=== PATIENT | female | born 1960 | race Two or more races ===

== ENCOUNTER 2021-10-28 13:30 | Outpatient (REF) | payer OTHER, SELFPAY | END 2021-10-28 13:31 | disposition home or self-care (01) | LOC: HO.MRI 13:30 | PROVIDERS: Visit Provider Psychiatry & Neurology Neurology | DX: Z13.89 Encounter for screening for other disorder (principal) ==

== ENCOUNTER 2023-05-31 13:45 | Outpatient (AMB) | payer OTHER, SELFPAY ==
--- NOTE | 2023-05-31 13:47 | MHC.OFFVIS ---
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 She c/o numbness, burning sensation and issues with gait. She also c/o numbness of leonardo hands. All her sx are intermittent, worse at night. [facility] Director Required: No Allergies No Known Allergies Allergy (Unverified 05/31/23 13:54) Medication List - Last Reconciled 05/31/23 by Freida Flores MD albuterol sulfate 2.5 mg inhalation Q4-6H PRN albuterol sulfate 90 mcg/actuation (ProAir HFA) 1 puff inhalation QID aspirin 81 mg PO DAILY bupropion HCl 300 mg PO QAM bupropion HCl (Wellbutrin XL) 150 mg PO QAM cyanocobalamin (vitamin B-12) 1,000 mcg PO DAILY epinephrine IM fluticasone propionate 50 mcg/actuation (Flonase Allergy Relief) 1 spray intranasal DAILY fluticasone propionate 220 mcg/actuation (Flovent HFA) 1 puff inhalation BID ketotifen fumarate 0.025%(0.035%) 1 drp ophthalmic (eye) BID meclizine 12.5 mg PO TID PRN omeprazole 20 mg PO DAILY trazodone 50 mg PO DAILY valacyclovir (Valtrex) 500 mg PO DAILY venlafaxine ER 37.5 mg PO BEDTIME HPI HPI Comments History of Present Illness Details 62y/o female comes for evaluation of numbness and tingling in bilateral lower extremities and hands. It started about 3-4 years ago and has worsened since then.she denies pain but feels like her plantar surfaces are warm. The discomfort is worse when she is lying down or at night.she has trouble sleeping and wakes up in the middle of the night with foot pain she has back and neck pain . she also has shooting pain from her back down her legs . No difficulty holding her urine. she feels off balance and has had falls. she has arthrtis in her knees which affect her walking. she has a diagnosis of sleep apnes but stopped using CPAP. she was seen by DR. Hodgson - diagnosed with neuropathy. she denies weakness or tremors [facility] Medical History (Updated 05/31/23 @ 14:31 by Freida Flores MD) Numbness and tingling in both hands Numbness and tingling of both legs Depression Hx of migraines Asthma Anxiety Obesity Herpes zoster Vitamin D deficiency Obstructive sleep apnea hypopnea, severe Hyperlipidemia Multiple thyroid nodules Surgical History Hx of cholecystectomy H/O lithotripsy H/O unilateral oophorectomy H/O tubal ligation Social History Household Members: Family Housing: House Alcohol intake: never Patient Tobacco Use Status: Former Tobacco user Use of substances other than those prescribed or required for medical reasons: No Physical Exam Vital Signs: Last Vital Signs Pulse 96 05/31/23 13:49 Resp 17 05/31/23 13:49 BP 146/82 H 05/31/23 13:49 Pulse Ox 98 05/31/23 13:49 Oxygen Delivery Method Room Air 05/31/23 13:49 BMI result Body Mass Index 47.7 Const General: cooperative, comfortable and no acute distress Nutritional Appearance: obese morbidly obese Orientation/consciousness: patient oriented x3 Eyes Pupils: Equal, round and reactive pupils present Neuro Other: Mild decreased PP and light touch in distal LE General: patient oriented x3, gait normal, tone normal, moves all extremities and no focal motor deficits Cranial nerves: Yes Facial sensation intact/muscles of mastication intact, Yes Equal, round and reactive pupils present, Yes Bilaterally intact EOM present, Yes Nystagmus not present, Yes Normal facial strength present, Yes Midline tongue present and Yes Symmetric palate elevation present Cognition (Neuro): normal cognition Gait exam (Neuro): Antalgic gait present Motor exam (neuro): 5/5 motor strength present throughout Deep tendon reflexes (DTR's): Right triceps reflex intensity grade: 1+, Left triceps reflex intensity grade: 1+, Rt Biceps (C5, C6): 1+, Left biceps reflex intensity grade: 1+, Right brachioradialis reflex intensity grade: 0, Left brachioradialis reflex intensity grade: 0 and Right patellar reflex intensity grade: 0 Assessment & Plan Assessment & Plan (1) Numbness and tingling of both legs: Code(s): R20.0 - Anesthesia of skin; R20.2 - Paresthesia of skin (2) Numbness and tingling in both hands: Code(s): R20.0 - Anesthesia of skin; R20.2 - Paresthesia of skin Plan Lab reports form PCP I will schedule her for EMG NCS She has a component of restless legs syndrome and i will trial her on gabapentin 300mg 1-2 tabs qhs Orders: Orders NE electromyogram (EMG) Today R20.0 - Anesthesia of skin, R20.2 - Paresthesia of skin NE nerve conduction velocity Today R20.0 - Anesthesia of skin, R20.2 - Paresthesia of skin Medications: New gabapentin 1-2 capsules orally bedtime; 60 caps 6RF Coding Level of Care Code New Pt Level 4 (06801) Diagnoses Numbness and tingling of both legs R20.0; R20.2 Numbness and tingling in both hands R20.0; R20.2
[2023-05-31 13:49] VITALS: BP 146/82; PULSE 96; RESP 17; O2SAT 98; BMI 47.7
== END 2023-05-31 14:38 | disposition home or self-care (01) ==
PROVIDERS: PCP Internal Medicine; Visit Provider Psychiatry & Neurology Neurology
DX: R20.0 Anesthesia of skin (principal); R20.2 Paresthesia of skin
CPT/HCPCS: 99204

== ENCOUNTER → 2023-05-31 13:45 | Outpatient (BNVA) | payer OTHER, SELFPAY | PROVIDERS: PCP Internal Medicine; Visit Provider Psychiatry & Neurology Neurology | DX: R20.0 Anesthesia of skin (principal); R20.2 Paresthesia of skin | CPT/HCPCS: 99202 ==

== ENCOUNTER 2023-07-18 12:44 | Outpatient (REF) | payer OTHER, SELFPAY ==
--- NOTE | 2023-07-18 12:48 | EMG_ITS ---
Chief complaint: Bilateral hands and feet numbness at least 4 years. Neck pain. Back pain. Nondiabetic. Family history-daughter and father have similar symptoms. Previous EMG by Dr. Hodgson 2 years ago allegedly showed neuropathy (EMG report was not available for my review). Reason for referral: Evaluate for neuropathy Referred by: Dr. Flores Procedure done: Bilateral upper and lower extremities NCS/EMG Precautions and/or limitations: None The limb temperature was monitored continuously and remained between 32-36 degrees C during the performance of the NCS. Nerve Conduction Studies Anti Sensory Summary Table ?Stim Site NR Onset (ms) Norm Onset (ms) Peak (ms) Norm Peak (ms) O-P Amp (?V) Norm O-P Amp Site1 Site2 Delta-0 (ms) Dist (cm) Riki (m/s) Norm Riki (m/s) Left Median Anti Sensory (2nd Digit) Wrist ? 2.4 3.6 <3.6 10.5 >10 Wrist 2nd Digit 2.4 14.0 58 Right Median Anti Sensory (2nd Digit) Wrist ? 3.0 3.9 <3.6 6.1 >10 Wrist 2nd Digit 3.0 14.0 47 Left Radial Anti Sensory (Thumb) Forearm NR <3.1 Forearm Thumb 0.0 Right Radial Anti Sensory (Thumb) Forearm ? 1.5 2.1 <3.1 1.9 Forearm Thumb 1.5 0.0 Left Sural Anti Sensory (Lat Mall) Calf NR <4.0 >5.0 Calf Lat Mall 14.0 Right Sural Anti Sensory (Lat Mall) Calf NR <4.0 >5.0 Calf Lat Mall 14.0 Left Ulnar Anti Sensory (5th Digit) Wrist NR <3.7 >15.0 Wrist 5th Digit 14.0 Right Ulnar Anti Sensory (5th Digit) Wrist ? 2.2 2.9 <3.7 2.7 >15.0 Wrist 5th Digit 2.2 14.0 64 Motor Summary Table ?Stim Site NR Onset (ms) Norm Onset (ms) O-P Amp (mV) Norm O-P Amp iAmp (mV) Amp (1st) (%) Site1 Site2 Delta-0 (ms) Dist (cm) Riki (m/s) Norm Riki (m/s) Left Median Motor (Abd Poll Brev) Wrist ? 3.3 <3.9 5.9 >4.5 7.0 100.0 Elbow Wrist 3.4 21.0 62 >45 Elbow ? 6.7 5.8 6.7 98.3 Right Median Motor (Abd Poll Brev) Wrist ? 3.8 <3.9 10.5 >4.5 12.2 100.0 Elbow Wrist 3.9 22.0 56 >45 Elbow ? 7.7 9.5 11.0 90.5 Right Peroneal Motor (Ext Dig Brev) Ankle ? 3.8 <4.0 6.7 >2.5 7.5 100.0 Ankle Ext Dig Brev 3.8 0.0 B Fib ? 10.5 5.6 6.3 83.6 B Fib Ankle 6.7 31.0 46 >40 Poplt ? 11.0 5.5 6.1 82.1 Poplt B Fib 0.5 5.0 100 >40 Left Tibial Motor (Abd Garcia Brev) Ankle ? 3.6 <5 9.4 >2.5 13.5 100.0 Ankle Abd Garcia Brev 3.6 0.0 Knee ? 11.6 4.5 6.5 47.9 Knee Ankle 8.0 37.0 46 >40 Right Tibial Motor (Abd Garcia Brev) Ankle ? 3.4 <5 6.4 >2.5 9.3 100.0 Ankle Abd Garcia Brev 3.4 0.0 Knee ? 11.4 5.2 7.9 81.3 Knee Ankle 8.0 35.0 44 >40 Left Ulnar Motor (Abd Dig Minimi) Wrist ? 2.6 <3.0 7.7 >5 9.5 100.0 B Elbow Wrist 3.3 19.0 58 >45 B Elbow ? 5.9 6.9 8.7 89.6 A Elbow B Elbow 1.2 10.0 83 >45 A Elbow ? 7.1 6.6 8.3 85.7 Right Ulnar Motor (Abd Dig Minimi) Wrist ? 2.4 <3.0 8.9 >5 10.8 100.0 B Elbow Wrist 3.5 20.0 57 >45 B Elbow ? 5.9 8.2 10.0 92.1 A Elbow B Elbow 1.1 10.0 91 >45 A Elbow ? 7.0 6.9 8.4 77.5 EMG ?Side Muscle Nerve Root Ins Act Fibs Psw Amp Dur Poly Recrt Int Pat Comment Right 1stDorInt Ulnar C8-T1 Nml Nml Nml Nml Nml 0 Nml Complete Right FlexCarRad Median C6-7 Nml Nml Nml Nml Nml 0 Nml Complete Right Biceps Musculocut C5-6 Nml Nml Nml Nml Nml 0 Nml Complete Right Triceps Radial C6-7-8 Nml Nml Nml Nml Nml 0 Nml Complete Right Deltoid Axillary C5-6 Nml Nml Nml Nml Nml 0 Nml Complete Left 1stDorInt Ulnar C8-T1 Nml Nml Nml Nml Nml 0 Nml Complete Left FlexCarRad Median C6-7 Nml Nml Nml Nml Nml 0 Nml Complete Left Biceps Musculocut C5-6 Nml Nml Nml Nml Nml 0 Nml Complete Left Triceps Radial C6-7-8 Nml Nml Nml Nml Nml 0 Nml Complete Left Deltoid Axillary C5-6 Nml Nml Nml Nml Nml 0 Nml Complete Right AbdHallucis MedPlantar S1-2 Nml Nml Nml Nml Nml 0 Nml Complete Right AntTibialis Dp Br Peron L4-5 Nml Nml Nml Nml Nml 0 Nml Complete Right PostTibialis Tibial L5, S1 Nml Nml Nml Nml Nml 0 Nml Complete Right MedGastroc Tibial S1-2 Nml Nml Nml Nml Nml 0 Nml Complete Right VastusMed Femoral L2-4 Nml Nml Nml Nml Nml 0 Nml Complete Left AbdHallucis MedPlantar S1-2 Nml Nml Nml Nml Nml 0 Nml Complete Left AntTibialis Dp Br Peron L4-5 Nml Nml Nml Nml Nml 0 Nml Complete Left PostTibialis Tibial L5, S1 Nml Nml Nml Nml Nml 0 Nml Complete Left MedGastroc Tibial S1-2 Nml Nml Nml Nml Nml 0 Nml Complete Left VastusMed Femoral L2-4 Nml Nml Nml Nml Nml 0 Nml Complete Paraspinal EMG ?Side Muscle Nerve Root Ins Act Fibs Psw Comment Right Cervical Upper Rami Nml Nml Nml Right Cervical Mid Rami Nml Nml Nml Right Cervical Lower Rami Nml Nml Nml Left Cervical Upper Rami Nml Nml Nml Left Cervical Mid Rami Nml Nml Nml Left Cervical Lower Rami Nml Nml Nml Right Lumbar Upper Rami Nml Nml Nml Right Lumbar Mid Rami Nml Nml Nml Right Lumbar Lower Rami Nml Nml Nml Left Lumbar Upper Rami Nml Nml Nml Left Lumbar Mid Rami Nml Nml Nml Left Lumbar Lower Rami Nml Nml Nml FINDINGS: All motor nerves tested showed normal distal latency, normal amplitude and normal conduction velocity. No conduction block seen. Bilateral sural nerves showed absent response. Right median sensory nerve showed prolonged peak latency and small amplitude. Right ulnar sensory nerve showed small amplitude. Right radial sensory nerve showed small amplitude. Left ulnar sensory nerve showed absent response. Left radial sensory nerve showed absent response. Concentric needle EMG was performed in selected muscles of the upper and lower extremities, cervical paraspinals and lumbar paraspinals. Study did not reveal signs of electric abnormalities as shown in the table below. IMPRESSION: 1. This is an abnormal study. 2. 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 3. There is no electrodiagnostic evidence for median neuropathy, ulnar neuropathy, brachial plexopathy, cervical radiculopathy, peroneal neuropathy, tibial neuropathy, lumbosacral plexopathy, or lumbar radiculopathy. Thank you for your kind referral. Gela Frias MD, PRESLEY Board Certified, [place] Board [employer] Physical Medicine and Rehabilitation (ABPMR) Board Certified, [place] Board of Electrodiagnostic Medicine (ABEM) CODIN 11464 x 4 MTDD
== END 2023-07-18 12:45 | disposition home or self-care (01) ==
LOC: HO.NEURO 12:44
PROVIDERS: PCP Internal Medicine; Visit Provider Psychiatry & Neurology Neurology
DX: R20.0 Anesthesia of skin (principal); R20.2 Paresthesia of skin
CPT/HCPCS: 95886; 95913

== ENCOUNTER → 2023-07-18 12:48 | Outpatient (BNV) | payer OTHER, SELFPAY | PROVIDERS: PCP Internal Medicine; Visit Provider Physical Medicine & Rehabilitation | DX: R20.0 Anesthesia of skin (principal); R20.2 Paresthesia of skin | CPT/HCPCS: 95886; 95913 ==

== ENCOUNTER 2024-03-20 09:51 | Outpatient (AMB) | payer OTHER, SELFPAY ==
--- NOTE | 2024-03-20 09:54 | A.OFFVIS_ITS ---
Vital Signs 03/20/24 09:55 Height 5 ft 4 in Weight 244 lb BMI 41.9 BP 136/78 Blood Pressure Location Rt brachial Position Sitting Pulse 74 Pulse Source Pulse Oximeter Pulse Oximetry (%) 97 Oxygen Delivery Method Room Air Intake Visit Reasons: Follow up Intake Note: Patient presents for follow up Allergies No Known Allergies Allergy (Unverified 03/20/24 09:56) Medication List - Last Reconciled 03/20/24 by Freida Flores MD albuterol sulfate 2.5 mg inhalation Q4-6H PRN albuterol sulfate 90 mcg/actuation (ProAir HFA) 1 puff inhalation QID aspirin 81 mg PO DAILY bupropion HCl XL 300 mg PO QAM bupropion HCl XL (Wellbutrin XL) 150 mg PO QAM cyanocobalamin (vitamin B-12) 1,000 mcg PO DAILY epinephrine IM fluticasone propionate 50 mcg/actuation (Flonase Allergy Relief) 1 spray intranasal DAILY fluticasone propionate 220 mcg/actuation (Flovent HFA) 1 puff inhalation BID gabapentin 1-2 capsules orally bedtime; gabapentin 600 mg PO BEDTIME ketotifen fumarate 0.025%(0.035%) 1 drp ophthalmic (eye) BID meclizine 12.5 mg PO TID PRN omeprazole 20 mg PO DAILY trazodone 50 mg PO DAILY valacyclovir (Valtrex) 500 mg PO DAILY venlafaxine ER 37.5 mg PO BEDTIME HPI Comments Details: 63y/o female comes for follow up of numbness and tingling in bilateral lower extremities and hands. Gabapentin 600mg qhs helps with her bedtime symptoms. she also reports some short term memory issues she has a diagnosis of sleep apne abut not on treatment . History form initial visit- ( 05/2023)It started about 3-4 years ago and has worsened since then.she denies pain but feels like her plantar surfaces are warm. The discomfort is worse when she is lying down or at night.she has trouble sleeping and wakes up in the middle of the night with foot pain she has back and neck pain . she also has shooting pain from her back down her legs . No difficulty holding her urine. she feels off balance and has had falls. she has arthrtis in her knees which affect her walking. she has a diagnosis of sleep apnea but stopped using CPAP. she was seen by DR. Hodgson - diagnosed with neuropathy. she denies weakness or tremors [facility] Medical History Hypersomnia Snoring Gait disorder Neuropathy Numbness and tingling in both hands Numbness and tingling of both legs Depression Hx of migraines Asthma Anxiety Obesity Herpes zoster Vitamin D deficiency Obstructive sleep apnea hypopnea, severe Hyperlipidemia Multiple thyroid nodules Surgical History Hx of cholecystectomy H/O lithotripsy H/O unilateral oophorectomy H/O tubal ligation Social History Household Members: Family Housing: House Alcohol intake: never Patient Tobacco Use Status: Former Tobacco user Physical Exam Vital Signs: Last Vital Signs Pulse 74 03/20/24 09:55 BP 136/78 03/20/24 09:55 Pulse Ox 97 03/20/24 09:55 Oxygen Delivery Method Room Air 03/20/24 09:55 BMI result Body Mass Index 41.9 Const General: cooperative, comfortable and no acute distress Nutritional Appearance: obese morbidly obese Orientation/consciousness: patient oriented x3 Eyes Pupils: Equal, round and reactive pupils present Neuro Other: Mild decreased PP and light touch in distal LE General: patient oriented x3, gait normal, tone normal, moves all extremities and no focal motor deficits Cranial nerves: Yes Facial sensation intact/muscles of mastication intact, Yes Equal, round and reactive pupils present, Yes Bilaterally intact EOM present, Yes Nystagmus not present, Yes Normal facial strength present, Yes Midline tongue present and Yes Symmetric palate elevation present Cognition (Neuro): normal cognition Gait exam (Neuro): Antalgic gait present Motor exam (neuro): 5/5 motor strength present throughout Deep tendon reflexes (DTR's): Right triceps reflex intensity grade: 1+, Left triceps reflex intensity grade: 1+, Rt Biceps (C5, C6): 1+, Left biceps reflex intensity grade: 1+, Right brachioradialis reflex intensity grade: 0, Left brachioradialis reflex intensity grade: 0 and Right patellar reflex intensity grade: 0 Assessment & Plan Assessment & Plan (1) Neuropathy: Code(s): G62.9 - Polyneuropathy, unspecified Category: Medical (2) Gait disorder: Code(s): R26.9 - Unspecified abnormalities of gait and mobility Category: Medical (3) Snoring: Code(s): R06.83 - Snoring Category: Medical (4) Hypersomnia: Code(s): G47.10 - Hypersomnia, unspecified Category: Medical Plan I will check her Vit B 12 D CBC CMP ESRHg A1C Home sleep study to reevaluate sleep apnea PT for gait and balance training Orders: Orders Complete Blood Count Auto Diff Today G62.9 - Polyneuropathy, unspecified Erythrocyte Sedimentation Rate Today G62.9 - Polyneuropathy, unspecified TSH reflex Free T4 Today G62.9 - Polyneuropathy, unspecified AMB Hemoglobin A1c Today Z13.9 - Encounter for screening, unspecified PT Evaluation and Treatment Today G62.9 - Polyneuropathy, unspecified, R26.9 - Unspecified abnormalities of gait and mobility RT home sleep study Today G47.10 - Hypersomnia, unspecified, R06.83 - Snoring Comprehensive Met. Panel Today G62.9 - Polyneuropathy, unspecified Vitamin B12 and Folate Today G62.9 - Polyneuropathy, unspecified G[place]KO Reflex Titer and Pattern Today G62.9 - Polyneuropathy, unspecified Vitamin D 25-OH (D2 and D3) Today G62.9 - Polyneuropathy, unspecified Medications: New gabapentin 600 mg PO BEDTIME 30 tabs 6RF Coding Level of Care Code Est Pt Level 4 (51591) Complex EM visit Add On G2211 Diagnoses Neuropathy G62.9 Gait disorder R26.9 Snoring R06.83 Hypersomnia G47.10
[2024-03-20 09:55] VITALS: BP 136/78; PULSE 74; O2SAT 97; BMI 41.9
== END 2024-03-20 10:15 | disposition home or self-care (01) ==
PROVIDERS: PCP Internal Medicine; Visit Provider Psychiatry & Neurology Neurology
DX: G62.9 Polyneuropathy, unspecified (principal); R26.9 Unspecified abnormalities of gait and mobility; R06.83 Snoring; G47.10 Hypersomnia, unspecified
CPT/HCPCS: 99214; G2211

== ENCOUNTER 2024-03-20 09:51 | Outpatient (REF) | payer OTHER, SELFPAY ==
[2024-03-20 17:46] LABS: MANUAL DIFF FLAG NO
[2024-03-20 17:56] LABS: Basophils Percent Auto 0.5 % (0-2); Eosinophils Absolute Auto 0.2 X10*3/uL (0.0-0.4); Eosinophils Percent Auto 2.5 % (0-4); Hematocrit 41.5 % (37.0-47.0); Hemoglobin 13.4 g/dl (12.0-16.0); Imm Gran Abs Auto 0.03 X10*3/uL (0.00-0.03); Imm Gran Pct Auto 0.4 % (0.0-0.4); Lymphocytes Absolute Auto 1.8 X10*3/uL (1.2-4.9); Lymphocytes Percent Auto 24.8 % (20-40); Mean Corpuscular HGB Conc 32.3 g/dl (31.0-35.0); Mean Corpuscular Hemoglobin 30.8 pg (27.0-33.0); Mean Corpuscular Volume 95.4 fL (80.0-98.0); Mean Platelet Volume 10.3 fL (9.4-12.3); Monocytes Absolute Auto 0.6 X10*3/uL (0.1-1.2); Monocytes Percent Auto 8.1 % (2-11); Neutrophils Absolute Auto 4.7 x10*3/uL (2.0-8.3); Neutrophils Percent Auto 63.7 % (45-73); Platelet Count 321 X10*3/uL (160-400); Red Blood Count 4.35 X10*6/uL (4.20-5.50); Red Cell Distribution Width 14.3 % (11.0-16.0); White Blood Count 7.3 X10*3/uL (4.8-10.8)
[2024-03-20 18:16] LABS: Alanine Aminotransferase 20 U/L (0-31); Albumin Level 3.8 g/dL (3.5-5.0); Alkaline Phosphatase 87 U/L (39-117); Anion Gap 8 (12-20); Aspartate Amino Transferase 25 U/L (5-31); Blood Urea Nitrogen 10 mg/dL (9-16); Calcium 8.9 mg/dL (8.4-10.2); Carbon Dioxide 23 mmol/L (22-29); Chloride 114 mmol/L (96-108); Estimated Glomerular Filt Rate > 60; Glucose Random 98 mg/dL (60-115); Potassium 4.1 mmol/L (3.3-5.1); Sodium 141 mmol/L (135-145); Total Protein 7.6 g/dL (6.5-8.0)
[2024-03-20 18:29] LABS: TSH reflex Free T4 0.29 uIU/mL (0.32-4.0)
[2024-03-20 18:41] LABS: Vitamin B12 650 pg/mL (200-900)
[2024-03-20 18:57] LABS: Erythrocyte Sedimentation Rate 22 MM/HR (0-20)
[2024-03-20 19:00] LABS: Free T4 (Free Thyroxine) 1.12 ng/dL (0.71-1.85)
[2024-03-25 11:53] LABS: Vitamin D 25-OH, D2 6 ng/mL; Vitamin D 25-OH, D3 32 ng/mL; Vitamin D 25-OH, Total 38 ng/mL (30-100)
[2024-03-25 13:39] LABS: Anti Nuclear Antibody Screen NEGATIVE (NEGATIVE)
== END 2024-03-20 09:52 | disposition home or self-care (01) ==
LOC: HO.HKASLDS 09:51
PROVIDERS: PCP Internal Medicine; Visit Provider Psychiatry & Neurology Neurology
DX: G62.9 Polyneuropathy, unspecified (principal); R26.9 Unspecified abnormalities of gait and mobility; R06.82 Tachypnea, not elsewhere classified; R06.83 Snoring; G47.10 Hypersomnia, unspecified
CPT/HCPCS: 36415; 80053; 82306; 82607; 82746; 84439; 84443; 85025; 85652; 86038; 99212

== ENCOUNTER → 2024-05-06 13:42 | Outpatient (REF) | payer OTHER, SELFPAY ==
--- OUTSIDE RECORDS SUMMARY | 2024-05-06 17:16 | XMS_ITS | Encounter Summary ---
Author Organization [facility] Address [address] [place] [address] Care Team Providers Care Retail Training Manager Name Role Phone Socorro Gale MD Primary Care Prov ider Reason for Referral * Medications - Denied Specialty Diagnoses / Procedures Referred By Renetta t Referred To Contact Diagnoses Class 3 severe obesity due to excess calories with body mass index (BMI) of 40.0 to 44.9 in adult, unspecified whether serious comorbidity present (CMS/HCC) Srinath Acharya MD [address] [address] Phone: tel: fax: Referral ID Status Reason Start Date Expiration Date Visits Re quested Visits Authorized [id number] Denied 1 1 Reason for Visit * Reason Comments Follow-up 3 month follow up Encounter Details Date Type Department Care Team (Late st Contact Info) Description 04/08/2024 1:15 PM EST Office Visit Bariatric Surgery - [place] [address] [phone] Srinath Acharya MD [address] [address] Class 3 severe obesity due to excess calories with body mass index (BMI) of 40.0 to 44.9 in adult, unspecified whether serious comorbidity present (CMS/HCC) (Primary Dx) Social History Tobacco Use Types Packs/Day Years Used Date Smoking Tobacco: Never Smokeless Tobacco: Never Alcohol Use Standard Drinks/Week Comments No 0 (1 standard drink = 0.6 oz pur e alcohol) Comments Unknown Sex and Gender Information Value Date Recorded Sex Assigned at Not on file Legal Sex Female 3:30 AM EST Gender Identity Not on file Sexual Orientation Not on file documented as of this encounter Last Filed Vital Signs Vital Sign Reading Time Taken Comments Blood Pressure 138/75 04/08/2024 1:20 PM EST Pulse 78 04/08/2024 1:20 PM EST Temperature 36.8 ??C (98.2 ??F) 04/08/2024 1:20 PM ES T Respiratory Rate - - Oxygen Saturation - - Inhaled Oxygen Concentration - - Weight 110 kg (243 lb) 04/08/2024 1:20 PM EST Height 162.6 cm (5' 4 ) 04/08/2024 1:20 PM EST Body Mass Index 41.71 04/08/2024 1:20 PM EST documented in this encounter Ordered Prescriptions Prescription Sig Dispense Quantity Refills Last Filled Start Date End Date tirzepatide, weight loss, (Zepbound) 2.5 mg/0.5 mL injectionIndicatio ns:Class 3 severe obesity due to excess calories with body mass index (BMI) of 40.0 to 44.9 in adult, unspecified whether serious comorbidity present (CMS/HCC) Inject 0.5 mL (2.5 mg total) under the skin every 7 (seven) days for 4 doses. 2 mL 04/08/2024 04/30/2024 documented in this encounter Progress Notes * Srinath Acharya MD - 04/08/2024 1:15 PM EST Ms. Prisca Chino is a 63 y.o. year old female who presents for surgical follow up regarding obesity. HPI: Ms. Prisca Chino did not used tirzepatide for a month. Issues with insurance company. Had lost 10 lbs. BMI is 41.71 ROS: GENERAL: No malaise, significant unintentional weight loss, fever, chills or night sweats. HEENT: No changes in hearing or vision, no nose bleeds or other nasal problems. NECK: No lumps, goiter, pain or significant neck swelling RESPIRATORY: No cough, wheezing or shortness of breath CARDIOVASCULAR: No chest pain, leg swelling or palpitations. GI: No abdominal discomfort, nausea, vomiting, or change in bowel habits. : No dysuria, frequency or incontinence. SKIN: No lesions, rash or itching. HEMATOLOGY: No prolonged bleeding, easy bruisability. LYMPHOLOGY No swollen nodes. MUSCULOSKELETAL: No abnormalities. NEURO: No abnormalities. All other systems reviewed which are negative. PAST MEDICAL HISTORY: Patient Active Problem List Diagnosis Date Noted Date Diagnosed Class 3 severe obesity due to excess calories with serious comorbidity and body mass index (BMI) of40.0 to 44.9 in adult ([facility]) 03/26/2024 Primary hypertension 03/26/2024 Depression 01/21/2024 Gastritis 01/21/2024 Neuropathy 12/05/2023 RLS (restless legs syndrome) 12/05/2023 Nuclear sclerosis of both eyes 05/30/2023 Cervical high risk HPV (human papillomavirus) test positive 03/14/2023 Palpitations 11/16/2021 Multiple thyroid nodules 09/19/2021 Positive cardiac stress test 09/15/2021 Abnormal ultrasound 08/31/2021 Mixed hyperlipidemia 08/25/2021 MONO on CPAP 08/24/2017 Herpes zoster dermatitis 05/24/2016 Vitamin D deficiency 05/24/2016 H. 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 PAST SURGICAL HISTORY: Past Surgical History: Procedure Laterality Date CHOLECYSTECTOMY PROCEDURE: [place] LAPAROSCOPY SURG CHOLECYSTECTOMY COLONOSCOPY 05/22/2012 PROCEDURE: HISTORICAL COLONOSCOPY; COMMENT: adenoma and tics; repeat in 5 yrs ESOPHAGOGASTRODUODENOSCOPY 07/07/2004 PROCEDURE: CO EGD TRANSORAL BIOPSY SINGLE/MULTIPLE; COMMENT: Dr Roth - hiatal hernia; bx reveals Barretts Esophagus w/o dysplasia ESOPHAGOGASTRODUODENOSCOPY 11/21/2006 PROCEDURE: CO EGD TRANSORAL BIOPSY SINGLE/MULTIPLE; COMMENT: Dr Ira Chung hiatal hernia, antral gastritis; bx negative for Barretts Esophagus, positive for H. pylori. ESOPHAGOGASTRODUODENOSCOPY 05/04/2012 PROCEDURE: CO ESOPHAGOGASTRODUODENOSCOPY TRANSORAL DIAGNOSTIC; COMMENT: hiatal hernia; no Lopez's KIDNEY STONE SURGERY PROCEDURE: CO NEPHROLITHOTOMY REMOVAL CALCULUS OTHER SURGICAL HISTORY PROCEDURE: [place] ECTOPIC W/O SALPING&/OOPHORECTOMY SALPINGOOPHORECTOMY Bilateral PROCEDURE: CO LAPAROSCOPY W/RMVL ADNEXAL STRUCTURES; COMMENT: unilateral TUBAL LIGATION PROCEDURE: HISTORICAL TUBAL LIGATION SOCIAL HISTORY: Social History Tobacco Use Smoking status: Never Smokeless tobacco: Never Substance Use Topics Alcohol use: No FAMILY HISTORY: Family History Problem Relation Name Age of Onset Cataracts Mother Arthritis Mother Cataracts Father Hypertension Father Colon cancer Father 80's Diabetes Sister Arthritis Sister Seizures Sister Thyroid disease Sister No Known Problems Brother No Known Problems Brother No Known Problems Maternal Grandmother Diabetes Maternal Grandfather Stroke Paternal Grandmother No Known Problems Paternal Grandfather No Known Problems Daughter Hypertension Daughter Diabetes Daughter Schizophrenia Son Diabetes Son Diabetes Uncle Maternal Blindness Neg Hx Glaucoma Neg Hx Macular degeneration Neg Hx Strabismus Neg Hx Breast cancer Neg Hx Ovarian cancer Neg Hx Family Status Relation Name Status Mother Father Sister Alive Sister Alive Brother Alive Brother Alive MGM MGF PGM PGF Daughter Alive Daughter Alive Son Alive Son Alive Uncle Maternal Neg Hx (Not Specified) No partnership data on file MEDICATIONS: Medications Discontinued During This Encounter Medication Reason tirzepatide (weight loss) (ZEPBOUND) injection 5 mg ACTIVE MEDICATIONS: No outpatient medications have been marked as taking for the 04/08/24 encounter (Office Visit) with Srinath Acharya MD. Current Facility-Administered Medications for the 04/08/24 encounter (Office Visit) with Srinath Acharya MD Medication Dose Route Frequency Provider Last Rate Last Admin [DISCONTINUED] tirzepatide (weight loss) (ZEPBOUND) injection 5 mg 5 mg subcutaneous q7 days Srinath Acharya MD ALLERGIES: Allergies Allergen Reactions [place] Anaphylaxis [place] (Prunus Persica) Anaphylaxis Peanut Oil Anaphylaxis and Itching Avocado Itching Fish Derived Fish Allergy Nitrofurantoin Macrocrystal Widespread rash Peanut Itching PHYSICAL EXAM: Visit Vitals BP 138/75 Pulse 78 Temp 36.8 ??C (98.2 ??F) (Oral) Ht 1.626 m (64 ) Wt 110 kg (243 lb) BMI 41.71 kg/m?? OB Status Postmenopausal Smoking Status Never BSA 2.12 m?? APPEARANCE: Alert and oriented and in no acute distress EYES: Conjunctiva normal and sclera normal and anicteric. NECK: Neck supple with no adenopathy. HEART: RRR with normal S 1 and S 2, no murmurs, no gallops. LUNG: Clear to auscultation LYMPH NODES: No gross cervical or clavicular lymphadenopathy. ABDOMEN: Bowel sounds normoactive, soft, non-tender, non-distended, EXTREMITIES: Extremities warm and well perfused without clubbing, cyanosis, or edema. SKIN: Skin color and texture normal. No rashes or lesions. NEUROLOGIC: Alert and oriented ??3. No motor or sensory deficits in the extremities. LABS/IMAGING: ASSESSMENT: 1. Class 3 severe obesity due to excess calories with body mass index (BMI) of 40.0 to 44.9 in adult, unspecified whether serious comorbidity present (CMS/HCC) PLAN: 1. Will restart tirzepatide at a lower dose, 2.5 mg. The patient will let us know in few weeks if the medication is being effective or if the patient is having side effects. The dose will be adjusteddepending upon the response and the presence of side effects. Follow-up in 4 months. documented in this encounter Plan of Treatment Upcoming Encounters Date Type Department Care Team (Late st Contact Info) Description 05/08/2024 2:30 PM EST Office Visit Obstetrics & Gynecology [address] [phone] Daisy Bacon, [facility] [address] [place] [address] 05/20/2024 2:30 PM EDT Office Visit Adult Medicine [facility] [address] [place] [phone] Socorro Gale MD [address] [place] [address] 05/27/2024 1:45 PM EDT Consult Orthopedic Surgery [place] [address] [phone] Rome Cannon, DPM [address] [address] 08/14/2024 2:50 PM EDT Appointment Radiology Department [address] [phone] 11/20/2024 3:00 PM EDT Office Visit Adult Medicine East [address] [phone] Socorro Gale MD [address] [place] [address] documented as of this encounter Visit Diagnoses Diagnosis Class 3 severe obesity due to excess calories with body mass index (BMI) of 40.0 to 44.9 in adult, unspecified whether serious comorbidity present ([facility])- Primary Encounter for screening mammogram for breast cancer documented in this encounter Additional Health Concerns Assessment Noted Time PHQ-9 Depression Total Score: 1 03/26/19 25 1:28 PM EST documented as of this encounter Care Teams Retail Training Manager Relationship Specialty Start Date End Date Socorro Gale MD [address] [place] [address] PCP - General Internal Medicine 10/03/21 documented as of this encounter
--- OUTSIDE RECORDS SUMMARY | 2024-05-06 17:16 | XMS_ITS | Encounter Summary ---
Author Organization [facility] Address [address] [place] [address] Care Team Providers Care Nurse Emergency Room Name Role Phone Socorro Gale MD Primary Care Prov ider Reason for Referral * Imaging (Routine) - Pending Review Specialty Diagnoses / Procedures Referred By Renetta rondon Referred To Contact Radiology Diagnoses Multiple thyroid nodules Procedures US Head Neck Soft Tissue Senia Looney PA [address] [place] [address] Phone: tel: fax: [address] Phone: tel: Referral ID Status Reason Start Date Expiration Date V isits Requested Visits Authorized [id number] Pending Review 04/24/2024 04/24/2025 1 1 Reason for Visit * Reason Comments Thyroid Problem Encounter Details Date Type Department Care Team ([facility] st Contact Info) Description 04/24/2024 2:00 PM EST Office Visit Endocrinology - [address] [phone] Senia Looney PA [address] [place] [address] Multiple thyroid nodules (Primary Dx) Social History Tobacco Use Types Packs/Day Years Used Date Smoking Tobacco: Never Smokeless Tobacco: Never Alcohol Use Standard Drinks/Week Comments No 0 (1 standard drink = 0.6 oz pur e alcohol) Comments No Sex and Gender Information Value Date Recorded Sex Assigned at Not on file Legal Sex Female 3:30 AM EST Gender Identity Not on file Sexual Orientation Not on file documented as of this encounter Last Filed Vital Signs Vital Sign Reading Time Taken Comments Blood Pressure 126/79 04/24/2024 1:58 PM EST Pulse 75 04/24/2024 1:58 PM EST Temperature 35.8 ??C (96.4 ??F) 04/24/2024 1:58 PM ES T Respiratory Rate - - Oxygen Saturation 98% 04/24/2024 1:58 PM EST Inhaled Oxygen Concentration - - Weight 110 kg (241 lb 12.8 oz) 04/24/2024 1:58 P M EST Height 162.6 cm (5' 4 ) 04/24/2024 1:58 PM EST Body Mass Index 41.5 04/24/2024 1:58 PM EST documented in this encounter Progress Notes * TAI Meléndez - 04/24/2024 2:00 PM EST CHIEF COMPLAINT: Thyroid Problem IDENTIFIER: Heike Chino is a 63 y.o. old female HPI: Patient is a 63-year-old female presents today for follow up regarding multiple thyroid nodules. [employer] used for [place]: [employer] #[id number] Patient tells me she completed a thyroid ultrasound recently, no records are found in chart. She does not recall where she completed this although will go home and find out and call our officeback. Denies any compressive symptoms. History: Patient had a carotid ultrasound which revealed possible thyroid nodules, following a thyroid ultrasound which revealed nodules both on the right and the left. Left thyroid nodule measured 1.9 x 1.7 x 1.4 cm heterogeneous hypoechoic, margins smooth, wider than tall with some small shadowing calcifications and echogenic foci (FNA proven benign 10/05/2021). Right thyroid nodule measured 0.6 x 0.4 x 0.4 cm hypoechoic nodule. Patient denies any family history of thyroid cancer. Patient sisters x2 do have hypothyroidism. 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 pylori. ESOPHAGOGASTRODUODENOSCOPY 05/04/2012 PROCEDURE: [place] ESOPHAGOGASTRODUODENOSCOPY TRANSORAL DIAGNOSTIC; COMMENT: hiatal hernia; no Lopez's KIDNEY STONE SURGERY PROCEDURE: [place] NEPHROLITHOTOMY REMOVAL CALCULUS OTHER SURGICAL HISTORY PROCEDURE: [place] ECTOPIC W/O SALPING&/OOPHORECTOMY SALPINGOOPHORECTOMY Bilateral PROCEDURE: [place] LAPAROSCOPY W/RMVL ADNEXAL STRUCTURES; COMMENT: unilateral TUBAL [...] (Not Specified) No partnership data on file MEDICATIONS DISCONTINUED/REORDERED: There are no discontinued medications. ACTIVE MEDICATIONS: Outpatient Medications Marked as Taking for the 04/24/24 encounter (Office Visit) with TAI Meléndez Medication Sig Dispense Refill albuterol 2.5 mg /3 mL (0.083 %) nebulizer solution INHALE 1 VIAL BY NEBULIZATION EVERY 4 HOURS NEEDED FOR WHEEZING, SHORTNESS OF BREATH OR COUGH. albuterol HFA (PROAIR HFA ; PROVENTIL HFA ; VENTOLIN HFA) 90 mcg/actuation inhaler Inhale 2 Puffs into the lungs every 6 hours as needed for Cough, Wheezing or Shortness of Breath for up to 30 days. aluminum-magnesium hydroxide-simethicone (MAALOX) 200-200-20 mg/5 mL suspension Take 15 mL by mouth4 times daily as needed (heartburn). cetirizine (ZyrTEC) 10 mg tablet Take 1 tablet (10 mg total) by mouth 1 (one) time each day. 90 tablet 1 cyanocobalamin (VITAMIN B-12) 1,000 mcg tablet TAKE 1 TABLET BY MOUTH EVERY DAY 90 tablet 1 docusate sodium (COLACE) 100 mg capsule Take 1 Capsule by mouth 2 times daily. DULoxetine (CYMBALTA) [address] capsule Take 1 capsule (20 mg total) by mouth 1 (one) time each day.Do not crush or chew. 90 each 3 EPINEPHrine (EPIPEN) 0.3 mg/0.3 mL injection Inject 0.3 mL (0.3 mg total) into the thigh if needed for anaphylaxis. Call 911 after use. 2 each 1 fluticasone HFA (Flovent HFA) 220 mcg/actuation inhaler TAKE 1 PUFF BY MOUTH TWICE A DAY fluticasone-salmeterol (ADVAIR DISKUS) 250-50 mcg/dose diskus inhaler Inhale 1 Puff into the lungs 2 times daily for 90 days. gabapentin (NEURONTIN) 300 mg capsule TAKE 1 TO 2 CAPSULES BY MOUTH EVERY DAY AT BEDTIME ketotifen fumarate (ZADITOR) 0.035 % ophthalmic solution INSTILL 1 DROP INTO BOTH EYES TWICE A DAY lisinopriL (PRINIVIL,ZESTRIL) 2.5 mg tablet TAKE 1 TABLET BY MOUTH EVERY DAY 90 tablet 1 melatonin 5 mg tablet at bedtime pantoprazole (PROTONIX) 40 mg EC tablet TAKE 1 TABLET BY MOUTH EVERY DAY phenyleph-min oil-petrolatum (Preparation H) 0.25-14-74.9 % ointment Place 1 Dose rectally 2 times daily as needed (rectal discomfort, hemorrhoids). tirzepatide, weight loss, (Zepbound) 2.5 mg/0.5 mL injection Inject 0.5 mL (2.5 mg total) under theskin every 7 (seven) days for 4 doses. 2 mL 0 traZODone (DESYREL) 100 mg tablet TAKE 2 TABLET BY MOUTH AT BEDTIME NEEDED FOR INSOMNIA. MAY REPEAT UP TO ONCE PER NIGHT Vitamin D3 50 mcg (2,000 unit) tablet TAKE 1 TABLET BY MOUTH EVERY DAY 90 tablet 1 ALLERGIES: Brown, Brown (prunus persica), Peanut oil, Avocado, Fish derived, Nitrofurantoin macrocrystal, and Peanut PHYSICAL EXAM: Blood pressure 126/79, pulse 75, temperature 35.8 ??C (96.4 ??F), temperature source Temporal, height 1.626 m (64 ), weight 110 kg (241 lb 12.8 oz), SpO2 98%. Body mass index is 41.5 kg/m??. Plan is deferred until next visit APPEARANCE: Alert and in no acute distress HEART: RRR NECK: Neck supple, no adenopathy, thyroid symmetric and of normal size LUNG: clear to auscultation NEURO: Awake, alert LABS: Lab Results Component Value Date HGBA1C 5.2 11/26/2023 No results found for: GLUF , MICROALBUR , LDLCALC , CREATININE , MICROALBCREA No results found for: GLUCOSE IMAGING: IMPRESSION: 1. Multiple thyroid nodules PLAN: Multiple thyroid nodules: Patient will call our office to let me know where she had her thyroid ultrasound done recently. there are no records scanned to the chart stating she had a thyroid ultrasound recently. Plan to repeat ultrasound in 1 year again, ordered. Check thyroid labs today. Return here in 1 year for reevaluation. All questions answered Medication and lab orders: Orders Placed This Encounter Procedures US Head Neck Soft Tissue Thyroid stimulating hormone with reflex to free t4 and free t3 US HEAD NECK SOFT TISSUE TAI Fan on 04/24/2024 at 2:53 PM EST documented in this encounter Plan of Treatment Upcoming Encounters Date Type Department Care Team (Late st Contact Info) Description 05/08/2024 2:30 PM EST Office Visit Obstetrics & Gynecology - [address] [phone] Daisy Bacon, [facility] [address] [place] [address] 05/20/2024 2:30 PM EDT Office Visit Adult Medicine [address] [phone] Socorro Gale MD [address] [place] [address] 05/27/2024 1:45 PM EDT Consult Orthopedic Surgery - [place] [address] [phone] Rome Cannon, SAVANNAHM [address] [address] 08/14/2024 2:50 PM EDT Appointment Radiology Department [address] [phone] 11/20/2024 3:00 PM EDT Office Visit Adult Medicine East - [place] [address] [place] [address] Socorro Gale MD [address] [place] [address] Scheduled Orders Name Type Priority Associated Diagnoses Orde r Schedule US Head Neck Soft Tissue Imaging Routine Multiple thyroid nodules Expected: 04/24/2025, Expires: 04/24/2025 documented as of this encounter Results * Thyroid stimulating hormone with reflex to free t4 and free t3 (04/24/2024 2:54 PM EST) TSH 1.92 0.40 - 4.00 mcIU/mL LAB CHEMISTRY METHOD 04/24/2024 6:37 PM EST [facility] Blood Venous blood specimen / Unknown Venipuncture / Unknown 04/24/2024 2:54 PM EST 04/24/2024 2:54 PM EST us Senia LUJAN LAB BLOOD ORDERABLES Final Resul t [facility] [address] [place] [address], documented in this encounter Visit Diagnoses Diagnosis Multiple thyroid nodules- Primary Nontoxic multinodular goiter Encounter for screening mammogram for breast cancer documented in this encounter Additional Health Concerns Assessment Noted Time PHQ-9 Depression Total Score: 1 03/26/19 25 1:28 PM EST documented as of this encounter Care Teams Nurse Emergency Room Relationship Specialty Start Date End Date Socorro Gale MD [address] [place] [address] PCP - General Internal Medicine 10/03/21 documented as of this encounter
--- OUTSIDE RECORDS SUMMARY | 2024-05-06 17:16 | XMS_ITS | Encounter Summary ---
Author Organization [facility] Address [address] [place] [address] Care Team Providers Care Ground Products Director Name Role Phone Socorro Gale MD Primary Care Prov ider Reason for Visit * Reason Comments Follow-up * Consultation (Routine) - Closed Specialty Diagnoses / Procedures Referred By Renetta rondon Referred To Contact Cardiology Diagnoses Exertional dyspnea Palpitations Secondary hypertension Hyperlipidemia, unspecified hyperlipidemia type Obesity, unspecified class, unspecified obesity type, unspecified whether serious comorbidity present Hector Alexander MD [address] [place] [phone] Phone: tel: fax: Hector Alexander MD [address] [place] [phone] Phone: tel: fax: Referral ID Status Reason Start Date Expiration Date V isits Requested Visits Authorized [id number] Closed Specialty Services Required 01/15/2024 01/14/2025 1 1 Encounter Details Date Type Department Care Team (Latest Contact Info) Description 04/14/2024 2:30 PM EST Office Visit [facility] [address] [place] [phone] Hector Alexander MD [address] [place] [phone] Mild intermittent asthma without complication (Primary Dx); Mixed hyperlipidemia; MONO on CPAP; Palpitations; Positive cardiac stress test; Class 3 severe obesity due to excess calories with serious comorbidity and body mass index (BMI) of 40.0 to 44.9 in adult (CMS/[facility]); Exertional dyspnea; Secondary hypertension; Hyperlipidemia, unspecified hyperlipidemia type; Obesity, unspecified class, unspecified obesity type, unspecified whether serious comorbidity present Social History Tobacco Use Types Packs/Day Years [...] Sign Reading Time Taken Comments Blood Pressure 150/78 04/14/2024 2:19 PM EST Pulse 80 04/14/2024 2:19 PM EST Temperature - - Respiratory Rate - - Oxygen Saturation 98% 04/14/2024 2:19 PM EST Inhaled Oxygen Concentration - - Weight 112 kg (246 lb) 04/14/2024 2:19 PM EST Height 162.6 cm (5' 4 ) 04/14/2024 2:19 PM EST Body Mass Index 42.23 04/14/2024 2:19 PM EST documented in this encounter Progress Notes * Hector Alexander MD - 04/14/2024 2:30 PM ESTAssociated Problem(s): Asthma * Hector Alexander MD - 04/14/2024 2:30 PM ESTAssociated Problem(s): Mixed hyperlipidemia * Hector Alexander MD - 04/14/2024 2:30 PM ESTAssociated Problem(s): MONO on CPAP * Hector Alexander MD - 04/14/2024 2:30 PM ESTAssociated Problem(s): Palpitations The patient has moderately rapid palpitations related to exertional activity. These are transitory and are not sustained. They have not been associated with presyncope or syncope. Given their predictable association with activity I suspect that they reflect sinus tachycardia. The patient has COPD on bronchodilator therapy. If the symptoms continue I would be inclined to add long-acting diltiazem 180 mg a day which may help reduce palpitations as well as improve blood pressure controlled. I haverecommended that the patient maintain a blood pressure diary to bring to her next scheduled visit with her primary care physician. Orders: Ambulatory referral to Cardiology * Hector Alexander MD - 04/14/2024 2:30 PM ESTAssociated Problem(s): Positive cardiac stress test Testing from 2021 appeared to be a false positive abnormality consistent with breast attenuation. Li recent study appears to be entirely within normal limits. The patient's symptoms do not suggest angina pectoris. * Hector Alexander MD - 04/14/2024 2:30 PM ESTAssociated Problem(s): Class 3 severe obesity due to excess calories with serious comorbidity and body mass index (BMI) of 40.0 to 44.9 in adult ([facility]) * Hector Alexander MD - 04/14/2024 2:30 PM EST PCP: Socorro Escobar MD HPI: Heike Chino is a 63 y.o. old female returns for cardiac follow-up assessment. History of Present Illness The patient is a very pleasant 63-year-old Wolof-speaking woman who last came to see me in November 2021 when she was referred for evaluation of an abnormal stress test. She has a history of systemic hypertension, reactive airway disease, and obesity. She has a positive family history for premature atherosclerosis. In 2021, she was referred for noninvasive cardiac evaluation to assess exertional breathlessness. Echocardiography revealed mild concentric LVH with preserved left ventricular systolic function and no evidence of significant valvular disease or pulmonary hypertension. Pharmacologic myocardial perfusion scanning was mildly abnormal with a mild perfusion defect in the mid anterior wall and anterior septum sparing the apex. There was no evidence of transient ischemic dilatationand left ventricular ejection fraction was normal. Holter monitoring revealed sinus rhythm with a single episode of transient Mobitz 1 second-degree heart block. At that time, the patient reported intermittent palpitations. I felt that the abnormal stress test did not conform to the distribution ofthe LAD and felt that the symptoms did not reflect coronary insufficiency. I suggested that weight loss would be an important pursuit for the patient and cleared her for anticipated bariatric surgery. She is now referred back to me for repeat cardiac assessment. She never underwent surgery but has been on Zepbound for the past 2 months, which has resulted in asignificant weight reduction from 278 pounds to 246 pounds. She reports occasional insomnia as a side effect of the medication but notes that it is less severe than the previous medication she was on. She does not experience any chest discomfort during physical activities such as walking. However, she reports episodes of tachycardia and diaphoresis, particularly during periods of rest. She does not report any presyncope. Her tachycardia is often triggered by household activities, ascending stairs, or walking. She has discontinued her aspirin therapy. She does not have diabetes. She has never p assed out or fallen. She recently had a pharmacologic myocardial perfusion scan in our office in December 2023. This study did not demonstrate any fixed or reversible perfusion defects and was entirely normal. Ejection fraction was approximately 75%. FAMILY HISTORY She has a positive family history for premature atherosclerosis. MEDICATIONS Discontinued: Aspirin. ACTIVE MEDICATIONS: Outpatient Medications Marked as Taking for the 04/14/24 encounter (Office Visit) with Hector Alexander MD Medication Sig Dispense Refill albuterol 2.5 mg [...] BY MOUTH EVERY DAY 90 tablet 1 PAST MEDICAL HISTORY: Patient Active Problem List Diagnosis Date Noted Date Diagnosed Class 3 severe obesity due to excess calories with serious comorbidity and body mass index (BMI) of40.0 to 44.9 in adult ([facility]) 03/26/2024 Primary hypertension 03/26/2024 Depression 01/21/2024 F/u [facility] Gastritis 01/21/2024 Neuropathy 12/05/2023 RLS (restless legs syndrome) 12/05/2023 Nuclear sclerosis of both eyes 05/30/2023 Cervical high risk HPV (human papillomavirus) test positive 03/14/20232014 PAP neg cytology, neg HPV 03/2023 PAP neg cytology, + HPV ( neg 16, 18, 45) Plan per asccp RECOMMENDATION 1-year follow-up?? RISK 5 year risk of CIN3+ is 2.25% Palpitations 11/16/2021 Multiple thyroid nodules 09/19/2021 Positive cardiac stress test 09/15/2021 Abnormal ultrasound 08/31/2021 Carotid US 08/31/21 showing possible nodule thyroid. US thyroid ordered. Mixed hyperlipidemia 08/25/2021 MONO on CPAP 08/24/2017 [facility] Home Sleep Apnea Test: Date 10/15/2020; Wt 282#; BMI 45; LOUIS (AHI) 15, AI 7; HI 8; Unclassified apneas 4; Obstructive apneas 19; Central apneas 6; Mixed apneas 0; hypopneas 32; average oxygen saturation 93% (lowest 81% without saturations <88% for 5% or more of study). - Obstructive Sleep Apnea - moderate; mostly hypopneas and obstructive apneas; without sleep related hypoventilation by 2020 home sleep apnea test. Herpes zoster dermatitis 05/24/2016 Vitamin D deficiency 05/24/2016 H. pylori infection 10/18/2010 Treated Anxiety 02/08/2010 Asthma 02/08/2010 Migraines 02/08/2010 Associated with nausea, photophobia and relieved by sleep. 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 ALLERGIES: Allergies Allergen Reactions Coamo Anaphylaxis Coamo (Prunus Persica) Anaphylaxis Peanut Oil Anaphylaxis and Itching Avocado Itching Fish Derived Fish Allergy Nitrofurantoin Macrocrystal Widespread rash Peanut Itching FAMILY HISTORY: Family History Problem Relation Name [...] cancer Neg Hx Ovarian cancer Neg Hx SOCIAL HISTORY: Social History Tobacco Use Smoking status: Never Smokeless tobacco: Never Substance Use Topics Alcohol use: No REVIEW OF SYSTEMS: ROS PHYSICAL EXAM: Vitals: 04/14/24 1419 BP: (!) 150/78 BP Location: Left arm Patient Position: Sitting BP Cuff Size: Adult Pulse: 80 SpO2: 98% Weight: 112 kg (246 lb) Height: 1.626 m (64 ) APPEARANCE: Alert and in no acute distress, obese. EYES: PERRL, conjunctiva and sclera normal EARS: External ears normal. NOSE/SINUS: Nares normal. Septum midline. Mucosa normal. No drainage or sinus tenderness. MOUTH/THROAT: no erythema or exudates NECK: JVP less then 8cm H2O, No bruits., Neck supple, no adenopathy or mass HEART: RRR with normal S1 and S2, no murmurs, no gallops, no JVD appreciated CHEST: non-tender LUNG: clear to auscultation ABDOMEN: Bowel sounds normoactive, no bruits, soft, non-tender, without organomegaly or palpable masses EXTREMITIES: Extremities warm and well perfused without clubbing, cyanosis, or edema NEURO: Awake, alert and oriented x 3 and Normal gait SKIN: Skin color, texture, turgor normal. No rashes or lesions. EKG: TESTING: LDL 110 mg/dl She recently had a pharmacologic myocardial perfusion scan in our office in December 2023. This study did not demonstrate any fixed or reversible perfusion defects and was entirely normal. Ejection fraction was approximately 75%. ASSESSMENT/PLAN: Assessment & Plan Mild intermittent asthma without complication Mixed hyperlipidemia MONO on CPAP Palpitations The patient has moderately rapid palpitations related to exertional activity. These are transitory and are not sustained. They have not been associated with presyncope or syncope. Given their predictable association with activity I suspect that they reflect sinus tachycardia. The patient has COPD on bronchodilator therapy. If the symptoms continue I would be inclined to add long-acting diltiazem 180 mg a day which may help reduce palpitations as well as improve blood pressure controlled. I haverecommended that the patient maintain a blood pressure diary to bring to her next scheduled visit with her primary care physician. Orders: Ambulatory referral to Cardiology Positive cardiac stress test Testing from 2021 appeared to be a false positive abnormality consistent with breast attenuation. Li recent study appears to be entirely within normal limits. The patient's symptoms do not suggest angina pectoris. Class 3 severe obesity due to excess calories with serious comorbidity and body mass index (BMI) of40.0 to 44.9 in adult ([facility]) Exertional dyspnea Orders: Ambulatory referral to Cardiology Secondary hypertension Orders: Ambulatory referral to Cardiology Hyperlipidemia, unspecified hyperlipidemia type In the absence of evident vascular obstructive disease I would recommend continued weight loss on tirzepatide with a goal of reducing LDL cholesterol to less than 100 mg/dL. Obesity, unspecified class, unspecified obesity type, unspecified whether serious comorbidity present Assessment & Plan 1. Cardiac evaluation. Her stress test results from December 2023 were within normal limits, indicating no cardiac blockages. She has been experiencing a faster heart rate during activities such as climbing stairs or walking, but there is no evidence of angina or heart failure. She has been taking weight loss injections for 2 months and has lost over 30 pounds, reducing her weight from 278 pounds to 246 pounds. She reports occasional insomnia as a side effect but finds it manageable. Her cholesterol levels are slightly elevated. She is advised to continue with the weight loss injections, as they may also help lower her cholesterol levels. Given the absence of any blockages, it is acceptable for her to discontinue a spirin. No further cardiac testing is deemed necessary at this time. A note will be sent to her primary care physician regarding her cholesterol levels. LDL is 110. Aim for less than 100 mg/dl. Agreewith planned repeat profile after weight loss. I have obtained verbal consent from Heike Chino prior to the recording. I have advised Heike Chino that she may refuse the recording and require the recording to be turned off at any time during this encounter. Please contact me for any specific questions or cardiac concerns. If palpitations worsen, we would be happy to arrange a holter monitor. documented in this encounter Plan of Treatment Upcoming Encounters Date Type Department Care Team (Late st Contact Info) Description 05/08/2024 2:30 PM EST Office Visit Obstetrics & Gynecology [facility] [address] [place] [phone] Daisy Bacon, SURAJ [address] [place] [address] 05/20/2024 2:30 PM EDT Office Visit Adult Medicine [facility] [address] [place] [phone] Socorro Gale MD [address] [place] [phone] 05/27/2024 1:45 PM EDT Consult Orthopedic Surgery - [place] [address] [phone] Rome Cannon DPEligio [address] [address] 08/14/2024 2:50 PM EDT Appointment Radiology Department - [place] [address] [place], [place] [phone] 11/20/2024 3:00 PM EDT Office Visit Adult Medicine [address] [phone] Socorro Gale MD [address] [place] [address] documented as of this encounter Visit Diagnoses Diagnosis Mild intermittent asthma without complication- Primary Mixed hyperlipidemia MONO on CPAP Palpitations Positive cardiac stress test Class 3 severe obesity due to excess calories with serious comorbidity and body mass index (BMI) of 40.0 to 44.9 in adult (CMS/[facility]) Exertional dyspnea Other dyspnea and respiratory abnormality Secondary hypertension Other secondary hypertension, unspecified Hyperlipidemia, unspecified hyperlipidemia type Obesity, unspecified class, unspecified obesity type, unspecified whether serious comorbidity present Encounter for screening mammogram for breast cancer documented in this encounter Discontinued Medications Medication Sig Discontinue Reason Start Date End Da te senna (SENOKOT) 8.6 mg tablet Take 1 Tablet by mouth daily. Discontinued by another clinician 07/09/2023 04/14/2024 documented as of this encounter Orders Outpatient Referral Count Last Ordered Date Fir st Ordered Date AMB REFERRAL TO CARDIOLOGY 04/14/2024 documented in this encounter Additional Health Concerns Assessment Noted Time PHQ-9 Depression Total Score: 1 03/26/19 25 1:28 PM EST documented as of this encounter Care Teams Ground Products Director Relationship Specialty Start Date End Date Socorro Gale MD [address] [place] [address] PCP - General Internal Medicine 10/03/21 documented as of this encounter
--- OUTSIDE RECORDS SUMMARY | 2024-05-06 17:16 | XMS_ITS | Clinical Summary ---
Author Organization [facility] Address [address] [place] [address] Phone Care Team Providers Care Orthophoto Tech/Draftsman Name Role Phone Socorro Alexandra MD Primary Care Provider + Allergies Active Allergy Reactions Criticality Noted Date Comments Avocado Itching Medium 11/18/2020 Fish Allergy 11/16/2021 Nitrofurantoin 04/12/2023 Nitrofurantoin Macrocrystal 02/14/2019 Widespread rash Peanut Oil Anaphylaxis,Itching High 09/10/2012 Prunus Persica Anaphylaxis High 09/10/2012 Medications gabapentin (NEURONTIN) 600 MG tablet TAKE 1 TABLET BY MOUTH EVERY DAY FOR 90 DAYS 3 Active Melatonin 5 MG tablet Take 2 tablets by mouth 1 (one) time each day in the evening 2 Active venlafaxine XR (EFFEXOR-XR) 37.5 MG 24 hr capsule TAKE 1 CAPSULE BY MOUTH ONCE A DAY TAKE WITH VENLAFAXINE 75 MG = 112.5 MG 2 Active Active Problems Problem Noted Date Diagnosed Date 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 Social History Tobacco Use Types Packs/Day Years Used Date Smoking Tobacco: Never Assessed Comments Unknown Sex and Gender Information Value Date Recorded Sex Assigned at Not on file Legal Sex Female 2:19 PM EST Gender Identity Not on file Sexual Orientation Not on file Last Filed Vital Signs Vital Sign Reading Time Taken Comments Blood Pressure 126/78 04/16/2023 11:36 AM EST Pulse 88 04/16/2023 11:36 AM EST Temperature - - Respiratory Rate - - Oxygen Saturation 98% 04/16/2023 11:36 AM EST Inhaled Oxygen Concentration - - Weight 116 kg (255 lb) 04/16/2023 11:36 AM EST Height - - Body Mass Index - - Plan of Treatment Health Maintenance Due Date Last Done Comments Breast Cancer Screening 1961 Colorectal Cancer Screening: Annual FOBT 2010 Colorectal Cancer Screening: Colonoscopy 2010 Colorectal Cancer Screening: Sigmoidoscopy 2010 Pneumococcal Vaccine: Pediatrics (0 to 5 Years) and At-Risk Patients (6 to 64 Years) (2 of 2 - PCV) 03/24/2015 03/24/2014 Influenza Vaccine (#1) 2023 3, 03/01/2023, 03/30/2022, Additional history exists Hepatitis B Vaccine Aged Out 07/17/2016, 7 No longer eligible based on patient's age to complete this topic Insurance MEDICAID MEDICAID Member Subscriber Plan / Payer (Ef fective 2022-Present) Name:Heike Umanzor Relation to Subscriber:Self Name:Heike Umanzor Payer ID:Not on file Group ID:[id number] Type:Not on file Address: [address] Care Teams Orthophoto Tech/Draftsman Relationship Specialty Start Date End Date Socorro Alexandra MD PCP - General 03/21/23
--- OUTSIDE RECORDS SUMMARY | 2024-05-06 17:16 | XMS_ITS | Encounter Summary ---
Author Organization [facility] Address [address] [place] [address] Care Team Providers Care Racket Stringer Name Role Phone Socorro Gale MD Primary Care Prov ider Reason for Referral * Therapy (Routine) - Closed Specialty Diagnoses / Procedures Referred By Renetta rondon Referred To Contact Pulmonology Diagnoses Asthma Procedures Pulmonary function testing: Carbon Monoxide Diffusing Capacity, Nitrogen Wash Out, Spirometry with Bronchodilator Kemar Mario MD [address] [place] [address] Phone: tel: fax: [facility] [address] [place] [phone] Phone: tel: Referral ID Status Reason Start Date Expiration Date Visits Re quested Visits Authorized [id number] Closed 04/04/2024 04/04/2025 1 1 Reason for Visit * Therapy (Routine) - Closed Specialty Diagnoses / Procedures Referred By Renetta rondon Referred To Contact Pulmonology Diagnoses Asthma Procedures Pulmonary function testing: Carbon Monoxide Diffusing Capacity, Nitrogen Wash Out, [place]pirom[place] [address] [place] [address] Phone: tel: fax: [facility] [address] [place] [phone] Phone: tel: Referral ID Status Reason Start Date Expiration Date Visits Re quested Visits Authorized [id number] Closed 04/04/2024 04/04/2025 1 1 Encounter Details Date Type Department Care Team (Latest Contact Info) Description 04/30/2024 1:55 PM EST - 04/30/2024 11:59 PM EST Hospital Encounter [facility] [address] [place] [address] Asthma Discharge Disposition: Home or Self Care Social History Tobacco Use Types Packs/Day Years [...] on file documented as of this encounter Medications at Time of Discharge albuterol 2.5 mg /3 mL (0.083 %) nebulizer solution INHALE 1 VIAL BY NEBULIZATION EVERY 4 HOURS NEEDED FOR WHEEZING, SHORTNESS OF BREATH OR COUGH. 08/22/2021 albuterol HFA (PROAIR HFA ; PROVENTIL HFA ; VENTOLIN HFA) 90 mcg/actuation inhaler Inhale 2 Puffs into the lungs every 6 hours as needed for Cough, Wheezing or Shortness of Breath for up to 30 days. 11/29/2022 aluminum-magnesi um hydroxide-simeth icone (MAALOX) 200-200-20 mg/5 mL suspension Take 15 mL by mouth 4 times daily as needed (heartburn). 07/09/2023 cetirizine (ZyrTEC) 10 mg tablet Take 1 tablet (10 mg total) by mouth 1 (one) time each day. 90 tablet 1 04/01/2024 cyanocobalamin (VITAMIN B-12) 1,000 mcg tablet TAKE 1 TABLET BY MOUTH EVERY DAY 90 tablet 1 03/24/2024 docusate sodium (COLACE) 100 mg capsule Take 1 Capsule by mouth 2 times daily. 07/09/2023 DULoxetine (CYMBALTA) [address] capsule Take 1 capsule (20 mg total) by mouth 1 (one) time each day. Do not crush or chew. 90 each 3 03/26/2024 EPINEPHrine (EPIPEN) 0.3 mg/0.3 mL injection Inject 0.3 mL (0.3 mg total) into the thigh if needed for anaphylaxis. Call 911 after use. 2 each 1 01/10/2024 fluticasone HFA (Flovent HFA) 220 mcg/actuation inhaler TAKE 1 PUFF BY MOUTH TWICE A DAY 05/17/2022 fluticasone-salm eterol (ADVAIR DISKUS) 250-50 mcg/dose diskus inhaler Inhale 1 Puff into the lungs 2 times daily for 90 days. 11/29/2022 gabapentin (NEURONTIN) 300 mg capsule TAKE 1 TO 2 CAPSULES BY MOUTH EVERY DAY AT BEDTIME ketotifen fumarate (ZADITOR) 0.035 % ophthalmic solution INSTILL 1 DROP INTO BOTH EYES TWICE A DAY 06/20/2022 lisinopriL (PRINIVIL,ZESTRI L) 2.5 mg tablet TAKE 1 TABLET BY MOUTH EVERY DAY 90 tablet 1 01/09/2024 melatonin 5 mg tablet at bedtime 12/06/2023 pantoprazole (PROTONIX) 40 mg EC tablet TAKE 1 TABLET BY MOUTH EVERY DAY 12/27/2023 phenyleph-min oil-petrolatum (Preparation H) 0.25-14-74.9 % ointment Place 1 Dose rectally 2 times daily as needed (rectal discomfort, hemorrhoids). 08/23/2023 traZODone (DESYREL) 100 mg tablet TAKE 2 TABLET BY MOUTH AT BEDTIME NEEDED FOR INSOMNIA. MAY REPEAT UP TO ONCE PER NIGHT 10/10/2023 Vitamin D3 50 mcg (2,000 unit) tablet TAKE 1 TABLET BY MOUTH EVERY DAY 90 tablet 1 03/19/2024 documented as of this encounter Discharge Disposition Disposition Code Departure Means Destination Home or Self Care documented in this encounter Plan of Treatment Upcoming Encounters Date Type Department Care Team (Late st Contact Info) Description 05/08/2024 2:30 PM EST Office Visit Obstetrics & Gynecology - [address] [phone] Daisy Bacon, BRONWYN [address] [place] [address] 05/20/2024 2:30 PM EDT Office Visit Adult [address] [phone] Socorro Gale MD [address] [place] [address] 05/27/2024 1:45 PM EDT Consult Orthopedic Surgery - [place] [address] [address] Rome Cannon, DPM [address] [address] 08/14/2024 2:50 PM EDT Appointment Radiology Department [address] [phone] 11/20/2024 3:00 PM EDT Office Visit [address] [phone] Socorro Gale MD [address] [place] [address] documented as of this encounter Procedures Procedure Name Priority Date/Time Associated Diagnosis Comments HC SPIROMETRY BRONCHODILATION RESPONSIVENESS PRE/POST BRONCHODILATOR ADMINISTRATION Routine 04/30/2024 2:58 PM EST Asthma documented in this encounter Results * Pulmonary function testing: Carbon Monoxide Diffusing Capacity, Nitrogen Wash Out, Spirometry with Bronchodilator (04/30/2024 2:58 PM EST) Caitlin Avila MD - 05/01/2024 3:44 PM EST DATE OF SERVICE: 04/30/24 SPIROMETRY: FEV1 is 90 % predicted and an FVC ??is 84 % predicted. The FEV1/FVC ratio is normal, no response to bronchodilators noted. LUNG VOLUMES: Total lung capacity (TLC): 98% predicted. Residual volume (RV): 102% predicted DIFFUSION CAPACITY: DLCO 86% predicted. DlCO/VA 148% of predicted COMPARISONS: INTERPRETATION: This pulmonary function test shows normal spirometry and diffusion. ??No evidence of lung disease based on this PFT ??Caitlin Hernandez MD ?? Kemar Mario MD PFT ORDERABLES Final Result documented in this encounter Visit Diagnoses Diagnosis Asthma Unspecified asthma Encounter for screening mammogram for breast cancer documented in this encounter Administered Medications Inactive Administered Medications - up to 3 most recent administrations Medication Order MAR Action Action Date Dose Rate Site albuterol 2.5 mg /3 mL (0.083 %) nebulizer solution 2.5 mg 2.5 mg, nebulization, Once, On Sun04/30/24 at 1430, For 1 dose Given 04/30/2024 2:44 PM EST 2.5 mg documented in this encounter Orders Medications Ordered That Cesar ht Not Have Been Administered Count Last Ordered Date First Ordered Date albuterol 2.5 mg /3 mL (0.08 3 %) nebulizer solution 2.5 mg 1 04/30/2024 documented in this encounter Additional Health Concerns Assessment Noted Time PHQ-9 Depression Total Score: 1 03/26/19 25 1:28 PM EST documented as of this encounter Care Teams Racket Stringer Relationship Specialty Start Date End Date Socorro Gale MD [address] [place] [address] PCP - General Internal Medicine 10/03/21 documented as of this encounter
--- OUTSIDE RECORDS SUMMARY | 2024-05-06 17:17 | XMS_ITS | Encounter Summary ---
Author Organization [facility] Address [address] [place] [address] Care Team Providers Care Fisherman Helper Name Role Phone Socorro Gale MD Primary Care Prov ider Reason for Visit * Reason Onset Date Comments Med Refill 04/03/2024 Zepbound Encounter Details Date Type Department Care Team ([facility] st Contact Info) Description 04/03/2024 Telephone Bariatric Surgery - [place] [address] [phone] Srinath Acharya MD [address] [address] Med Refill (Zepbound) Social History Tobacco Use Types Packs/Day Years [...] on file documented as of this encounter Progress Notes * Rosy Hickey - 04/03/2024 12:57 PM EST Patient did well on Zepbound 2.5 mgs and would like a refill with titration. If appropriate, please send script for Zepbound 5 mgs to their pharmacy. The patient does have a follow up in 04/08/2024 Patient needs a new PA documented in this encounter Plan of Treatment Upcoming Encounters Date Type Department Care Team (Late st Contact Info) Description 05/08/2024 2:30 PM EST Office Visit Obstetrics & Gynecology - [facility] [address] [place] [address] Arleen Daisy, CNM [address] [place] [address] 05/20/2024 2:30 PM EDT Office Visit Adult Medicine [address] [phone] Socorro Gale MD [address] [place] [address] 05/27/2024 1:45 PM EDT Consult Orthopedic Surgery - [place] [address] [phone] Rome Cannon, DPM [address] [address] 08/14/2024 2:50 PM EDT Appointment Radiology Department [address] [phone] 11/20/2024 3:00 PM EDT Office Visit Adult Medicine [address] [phone] Socorro Gale MD [address] [place] [address] documented as of this encounter Visit Diagnoses Not on filedocumented in this encounter Additional Health Concerns Assessment Noted Time PHQ-9 Depression Total Score: 1 03/26/19 25 1:28 PM EST documented as of this encounter Care Teams Fisherman Helper Relationship Specialty Start Date End Date Socorro Gale MD [address] [place] [address] PCP - General Internal Medicine 10/03/21 documented as of this encounter
--- OUTSIDE RECORDS SUMMARY | 2024-05-06 17:17 | XMS_ITS | Clinical Summary ---
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 Name Role Phone Socorro Gale MD Primary Care Prov ider Allergies Active Allergy Reactions Criticality Noted Date Comments Avocado Itching Medium 11/18/2020 Fish Derived 11/16/2021 Fish Allergy Nitrofurantoin Macrocrystal 02/14/2019 Widespread rash Jewell Anaphylaxis High 09/10/2012 Jewell (Prunus Persica) Anaphylaxis High 09/10/2012 Peanut Itching 09/10/2012 Peanut Oil Anaphylaxis,Itching High 09/10/2012 Medications lisinopriL (PRINIVIL,ZESTR IL) 2.5 mg tablet TAKE 1 TABLET BY MOUTH EVERY DAY 90 tablet 1 01/09/20 24 Active EPINEPHrine (EPIPEN) 0.3 mg/0.3 mL injection Inject 0.3 mL (0.3 mg total) into the thigh if needed for anaphylaxis. Call 911 after use. 2 each 1 01/10/20 24 025 Active albuterol 2.5 mg /3 mL (0.083 %) nebulizer solution INHALE 1 VIAL BY NEBULIZATION EVERY 4 HOURS NEEDED FOR WHEEZING, SHORTNESS OF BREATH OR COUGH. 08/23/19 22 Active albuterol HFA (PROAIR HFA ; PROVENTIL HFA ; VENTOLIN HFA) 90 mcg/actuation inhaler Inhale 2 Puffs into the lungs every 6 hours as needed for Cough, Wheezing or Shortness of Breath for up to 30 days. 11/30/19 23 Active aluminum-magnes ium hydroxide-simet hicone (MAALOX) 200-200-20 mg/5 mL suspension Take 15 mL by mouth 4 times daily as needed (heartburn). 07/09/19 24 Active docusate sodium (COLACE) 100 mg capsule Take 1 Capsule by mouth 2 times daily. 07/09/19 24 Active fluticasone HFA (Flovent HFA) 220 mcg/actuation inhaler TAKE 1 PUFF BY MOUTH TWICE A DAY 05/18/19 23 Active fluticasone-ricky meterol (ADVAIR DISKUS) 250-50 mcg/dose diskus inhaler Inhale 1 Puff into the lungs 2 times daily for 90 days. 11/30/19 23 Active gabapentin (NEURONTIN) 300 mg capsule TAKE 1 TO 2 CAPSULES BY MOUTH EVERY DAY AT BEDTIME Active ketotifen fumarate (ZADITOR) 0.035 % ophthalmic solution INSTILL 1 DROP INTO BOTH EYES TWICE A DAY 06/21/19 23 Active melatonin 5 mg tablet at bedtime 12/06/19 24 Active pantoprazole (PROTONIX) 40 mg EC tablet TAKE 1 TABLET BY MOUTH EVERY DAY 12/27/19 24 Active phenyleph-min oil-petrolatum (Preparation H) 0.25-14-74.9 % ointment Place 1 Dose rectally 2 times daily as needed (rectal discomfort, hemorrhoids). 08/23/19 24 Active traZODone (DESYREL) 100 mg tablet TAKE 2 TABLET BY MOUTH AT BEDTIME NEEDED FOR INSOMNIA. MAY REPEAT UP TO ONCE PER NIGHT 10/10/19 24 Active Vitamin D3 50 mcg (2,000 unit) tablet TAKE 1 TABLET BY MOUTH EVERY DAY 90 tablet 1 03/19/19 25 Active cyanocobalamin (VITAMIN B-12) 1,000 mcg tablet TAKE 1 TABLET BY MOUTH EVERY DAY 90 tablet 1 03/24/19 25 Active DULoxetine (CYMBALTA) [address] capsule Take 1 capsule (20 mg total) by mouth 1 (one) time each day. Do not crush or chew. 90 each 3 03/26/19 25 026 Active cetirizine (ZyrTEC) 10 mg tablet Take 1 tablet (10 mg total) by mouth 1 (one) time each day. 90 tablet 1 04/01/19 25 Active senna (SENOKOT) 8.6 mg tablet Take 1 Tablet by mouth daily. 07/09/19 24 025 Discontinu ed(Discont inued by another clinician) tirzepatide, weight loss, (Zepbound) 2.5 mg/0.5 mL injectionIndica tions:Class 3 severe obesity due to excess calories with body mass index (BMI) of 40.0 to 44.9 in adult, unspecified whether serious comorbidity present ([facility]) Inject 0.5 mL (2.5 mg total) under the skin every 7 (seven) days for 4 doses. 2 mL 04/08/19 25 025 Hospital, Clinic, or Other Facility Administered Medication Ordered Dose Route Frequency Start Date End Date Status tirzepatide (weight loss) (ZEPBOUND) injection 5 mgIndications:Obesi ty, Class III, BMI 40-49.9 (morbid obesity) (CMS/[facility]) 5 mg subQ Every 7 days 04/04/2024 04/08/2024 Disc ontinued Active Problems Problem Noted Date Diagnosed Date Insomnia 05/05/2024 Class 3 severe obesity due t o excess calories with serious comorbidity and body mass index (BMI) of 40.0 to 44.9 in adult 03/26/2024 Assessment & Plan (04/14/2024 3:20 PM EST): Assessment & Plan (03/26/2024 3:10 PM EST): BMI is 42.2 Following with bariatric team. Pending approval from the insurance for Zepbound. Primary hypertension 03/26/2024 Assessment & Plan (03/26/2024 3:10 PM EST): Blood pressure is well-controlled on lisinopril 2.5 mg. Recommended to follow a low-salt diet and exercise regularly. Orders: Ambulatory referral to Podiatry; Future Comprehensive metabolic panel; Future Lipid panel with reflex to direct LDL; Future Depression 01/21/2024 Overview (01/21/2024): F/u [facility] 01/21/2024 Neuropathy 12/05/2023 RLS (restless legs syndrome) 12/05/2023 Nuclear sclerosis of both eyes 05/30/2023 Dilation of renal deepti 04/15/2023 Cervical high risk HPV (human papillomavirus) te st positive 03/14/2023 Overview (01/21/2024): 2014 PAP neg cytology, neg HPV 03/2023 PAP neg cytology, + HPV ( neg 16, 18, 45) Plan per asccp RECOMMENDATION 1-year follow-up?? RISK 5 year risk of CIN3+ is 2.25% Palpitations 11/16/2021 Assessment & Plan (04/14/2024 3:20 PM EST): The patient has moderately rapid palpitations related [...] well as improve blood pressure controlled. I have recommended that the patient maintain a blood pressure diary to bring to her next scheduled visit with her primary care physician. Orders: Ambulatory referral to Cardiology Multiple thyroid nodules 09/19/2021 Positive cardiac stress test 09/15/2021 Assessment & Plan (04/14/2024 3:20 PM EST): Testing from 2021 appeared to be a false positive abnormality consistent with breast attenuation. A more recent study appears to be entirely within normal limits. The patient's symptoms do not suggest angina pectoris. Abnormal ultrasound 08/31/2021 Overview (01/21/2024): Carotid US 08/31/21 showing possible nodule thyroid. US thyroid ordered. Mixed hyperlipidemia 08/25/2021 Assessment & Plan (04/14/2024 3:20 PM EST): Assessment & Plan (03/26/2024 3:10 PM EST): Patient not on medications, healthy diet and regular exercise were discussed with the patient. She is also following with bariatric surgery. MONO on CPAP 08/24/2017 Overview (01/21/2024): [facility] Home Sleep Apnea Test: Date 10/15/2020; Wt [...] hypoventilation by 2020 home sleep apnea test. Assessment & Plan (04/14/2024 3:20 PM EST): Herpes zoster dermatitis 05/24/2016 Vitamin D deficiency 05/24/2016 H. pylori infection 10/18/2010 Overview (01/21/2024): Treated Anxiety 02/08/2010 Asthma 02/08/2010 Assessment & Plan (04/14/2024 3:20 PM EST): Assessment & Plan (03/26/2024 3:10 PM EST): well-controlled. No recent exacerbations or visits to ER. ACT is 20. Will continue Advair as a controller medication and albuterol as a rescue medication. Orders: Ambulatory referral to Podiatry; Future Comprehensive metabolic panel; Future Lipid panel with reflex to direct LDL; Future Migraines 02/08/2010 Overview (01/21/2024): Associated with nausea, photophobia and relieved by sleep. 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 Overview (01/21/2024): [place] [place] Encounters Date Type Department Care Team Description 04/30/2024 1:55 PM EST - 04/30/2024 11:59 PM EST Hospital Encounter [facility] Pulmonary [address] [place] [address] Asthma Discharge Disposition: Home or Self Care 04/24/2024 2:00 PM EST Office Visit Endocrinology [address] [phone] Senia Looney PA Multiple thyroid nodules (Primary Dx) 04/14/2024 2:30 PM EST Office Visit [facility] Cardiology [address] [place] [phone] Hector Alexander MD Mild intermittent asthma without complication (Primary Dx); Mixed hyperlipidemia; MONO on CPAP; Palpitations; Positive cardiac stress test; Class 3 severe obesity due to excess calories with serious comorbidity and body mass index (BMI) of 40.0 to 44.9 in adult (CMS/HCC); Exertional dyspnea; Secondary hypertension; Hyperlipidemia, unspecified hyperlipidemia type; Obesity, unspecified class, unspecified obesity type, unspecified whether serious comorbidity present 04/08/2024 1:15 PM EST Office Visit Bariatric Surgery [address] [phone] Srinath Acharya MD Class 3 severe obesity due to excess calories with body mass index (BMI) of 40.0 to 44.9 in adult, unspecified whether serious comorbidity present (CMS/HCC) (Primary Dx) 04/03/2024 [facility] [address] [phone] Srinath Acharya MD Med Refill (Zepbound) 03/26/2024 1:15 PM EST Office Visit Adult Medicine [address] [phone] Socorro Gale MD Primary hypertension (Primary Dx); Mild intermittent asthma without complication; Mixed hyperlipidemia; Chronic pain of both feet; Class 3 severe obesity due to excess calories with serious comorbidity and body mass index (BMI) of 40.0 to 44.9 in adult (CMS/HCC); Screening for depression from Last 3 Months Immunizations Name Administration Dates Next Due Hepatitis B (Kpddyvo-Y-Xoeqn , Recombivax HB-Adult) 19yo and older 07/17/2016,06/14/2016 Influenza Quadravalent, MDCK , 0.5ml, preservative free (Flucelvax) 6mo and older 03/01/2023,03/30/2022,04/14/2021,12/16,12/24/2017 Influenza Quadrivalent, 0.5m l, preservative free (Fluarix; FluLaval; Fluzone) ages 6mo and older (Afluria) 3yo and older 03/11/2015 Influenza trivalent, 0.5mL, preservative free (Fluarix; FluLaval; Fluzone) ages 6mo and older (Afluria) 3 years and older 11/19/2023,03/11/2015,03/24/2014,01/21,04/01/2012 Influenza trivalent, with pr eservative (Fluzone; Afluria) 6mo and older 11/19/2023,01/21/2016,03/24/2014,01/21,04/01/2012 PPD Test 01/05/2017, 3,02/15/2010,02/10 Pneumococcal polysaccharide 23 valent (Pneumovax 23) 2yo and older 03/24/2014 Tdap Tetanus diptheria acell ular pertussis (Boostrix; Adacel) 7yo and older 09/19/2022,01/17/2012 Surgical History Surgery Date Site/Laterality Comments OTHER SURGICAL HISTORY PROCEDURE: [place] TX ECTOPIC W/O SALPING&/OOPHORECTOMY KIDNEY STONE SURGERY PROCEDURE: [place] NEPHROLITHOTOMY REMOVAL CALCULUS ESOPHAGOGASTRODUODENOSCOPY 07/07/2004 PROCEDURE: [place] EGD TRANSORAL BIOPSY SINGLE/MULTIPLE; COMMENT: Dr Roth - hiatal hernia; bx reveals Barretts Esophagus w/o dysplasia ESOPHAGOGASTRODUODENOSCOPY 11/21/2006 PROCEDURE: NC EGD TRANSORAL BIOPSY SINGLE/MULTIPLE; COMMENT: Dr Ira viverosatal hernia, antral gastritis; bx negative for Barretts Esophagus, positive for H. pylori. ESOPHAGOGASTRODUODENOSCOPY 05/04/2012 PROCEDURE: NC ESOPHAGOGASTRODUODENOSCOPY TRANSORAL DIAGNOSTIC; COMMENT: hiatal hernia; no Lopez's COLONOSCOPY 05/22/2012 PROCEDURE: HISTORICAL COLONOSCOPY; COMMENT: adenoma and tics; repeat in 5 yrs SALPINGOOPHORECTOMY Bilateral PROCEDURE: NC LAPAROSCOPY W/RMVL ADNEXAL STRUCTURES; COMMENT: unilateral CHOLECYSTECTOMY PROCEDURE: NC LAPAROSCOPY SURG CHOLECYSTECTOMY TUBAL LIGATION PROCEDURE: HISTORICAL TUBAL LIGATION Medical History Medical History Date Comments Asthma DX:Asthma Depression DX:Depression Gastritis DX:Gastritis Seasonal allergies DX:Seasonal a llergies H. pylori infection 10/18/2010 DX:H. 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; COMMENT[place] [place] Anxiety state DX:Anxiety state MONO on CPAP 08/24/2017 DX:MONO on CPAP GERD (gastroesophageal reflux disease) DX:GERD (gastroesophageal reflux disease) Family history of gastric cancer DX:Family history of gastric cancer Change in bowel habits DX:Change in bowel habits Hemorrhoids DX:Hemorrhoids Rectal discomfort DX:Rectal disc omfort Esophagitis DX:Esophagitis Family History Medical History Relation Name Comments No Known Problems Brother 1 No Known Problems Brother 2 No Known Problems Daughter 1 Diabetes Daughter 2 Hypertension Daughter 2 Cataracts Father Colon cancer Father 80's Hypertension Father Diabetes Maternal Grandfather No Known Problems Maternal Grandmother Arthritis Mother Cataracts Mother No Known Problems Paternal Grandfather Stroke Paternal Grandmother Arthritis Sister 1 Diabetes Sister 1 Seizures Sister 2 Thyroid disease Sister 2 Schizophrenia Son 1 Diabetes Son 2 Diabetes Uncle Maternal Blindness Neg Hx Breast cancer Neg Hx Glaucoma Neg Hx Macular degeneration Neg Hx Ovarian cancer Neg Hx Strabismus Neg Hx Relation Name Status Comments Brother 1 Alive Brother 2 Alive Daughter 1 Alive Daughter 2 Alive Father Maternal Grandfather Maternal Grandmother Mother Paternal Grandfather Paternal Grandmother Sister 1 Alive Sister 2 Alive Son 1 Alive Son 2 Alive Uncle Maternal Social History Tobacco Use Types Packs/Day Years Used Date Smoking Tobacco: Never Smokeless Tobacco: Never Alcohol Use Standard Drinks/Week Comments No 0 (1 standard drink = 0.6 oz pur e alcohol) Comments No Sex and Gender Information Value Date Recorded Sex Assigned at Not on file Legal Sex Female 3:30 AM EST Gender Identity Not on file Sexual Orientation Not on file Obstetrics History Para Term AB IAB SAB Ectopic Multiple Livin g Live Births 5 5 4 1 4 5 Date Outcome GA Total Labor Labor/2nd/3rd Weight Sex Type Anes PTL Chrissie A1 A5 Name Clin 980 Term 37w 0d 2268 g (80 oz) F Vag-S pont None Livin g Delivery Location:[place] 981 Term 38w 0d 3175 g (112 oz) M Vag-S pont None Livin g Delivery Location:[place] 982 32w 0d 907 g (32 oz) F Vag-S pont None Y Decea sed Delivery Location:[place] Comments: at 2 1 days 985 Term 38w 0d 2722 g (96 oz) F Vag-S pont None Livin g Delivery Location:[place] 986 Term 38w 0d 3175 g (112 oz) M Vag-S pont Epidur al Livin g Delivery Location:[facility] Filed Vital Signs Vital Sign Reading Time Taken Comments Blood Pressure 126/79 04/24/2024 1:58 PM EST Pulse 75 04/24/2024 1:58 PM EST Temperature 35.8 ??C (96.4 ??F) 04/24/2024 1:58 PM ES T Respiratory Rate 16 03/26/2024 1:22 PM EST Oxygen Saturation 98% 04/24/2024 1:58 PM EST Inhaled Oxygen Concentration - - Weight 110 kg (241 lb 12.8 oz) 04/24/2024 1:58 P M EST Height 162.6 cm (5' 4 ) 04/24/2024 1:58 PM EST Body Mass Index 41.5 04/24/2024 1:58 PM EST Plan of Treatment Upcoming Encounters Date Type Department Care Team (Late st Contact Info) Description 05/08/2024 2:30 PM EST Office Visit Obstetrics & Gynecology - [address] [phone] Daisy Bacon, SURAJM [address] [place] [address] 05/20/2024 2:30 PM EDT Office Visit Adult Medicine [address] [phone] Socorro Gale MD [address] [place] [address] 05/27/2024 1:45 PM EDT Consult Orthopedic Surgery - [place] [address] [phone] Rome Cannon, DPM [address] [address] 08/14/2024 2:50 PM EDT Appointment Radiology Department - [address] [phone] 11/20/2024 3:00 PM EDT Office Visit Adult Medicine East - [address] [phone] Socorro Gale MD [address] [place] [address] Health Maintenance Due Date Last Done Comments Zoster Vaccines (1 of 2) 10/26/2011 Pneumococcal Vaccine: 50+ Years (2 of 2 - PCV) 03/24/2015 03/24/2014 Pneumococcal Vaccine: Pediatrics (0 to 5 Years) and At-Risk Patients (6 to 64 Years) (2 of 2 - PCV) 03/24/2015 03/24/2014 Hepatitis B Vaccines (3 of 3 - 19+ 3-dose series) 12/14/2016 07/17/2016, 06/14/2016 RSV Immunization Patients 60+ Years Old (1 - Risk 60-74 years 1-dose series) 2021 Social Influencers of Health Screening 02/11/2022 COVID-19 Vaccine (2023- season) 2023 Depression Screening 03/26/2025 03/26/2024, 03/13/19 Hypertension/CHF/CAD Annual BMP Blood Test 04/24/2025 04/24/2024, 11/26/2023, 11/26/2023, Additional history exists Breast Cancer Screening 08/07/2025 08/08/19, 08/08/2023, 07/26/2022, Additional history exists Colorectal Cancer Screening: Colonoscopy 12/04/2027 12/03/2017 Cervical Cancer Screening: HPV 03/06/2028 03/06/2023 Cholesterol Screening (Lipid Panel) 11/25/2028 11/26/2023, 11/26/2023 DTaP,Tdap,and Td Vaccines (3 - Td or Tdap) 09/19/2032 09/19/2022, 01/17/2012 HIV Screening Completed 02/17/2019 Hepatitis C Screening Completed 02/17/2019 Influenza Vaccine Completed 11/19/2023, , 03/01/2023, Additional history exists HIB Vaccines Aged Out No longer eligi ble based on patient's age to complete this topic HPV Vaccines Aged Out No longer eligi ble based on patient's age to complete this topic Hepatitis A Vaccines Aged Out No long er eligible based on patient's age to complete this topic IPV Vaccines Aged Out No longer eligi ble based on patient's age to complete this topic MMR Vaccines Aged Out No longer eligi ble based on patient's age to complete this topic Meningococcal ACWY Vaccine Aged Out N o longer eligible based on patient's age to complete this topic Meningococcal B Vacine Aged Out No lo nger eligible based on patient's age to complete this topic RSV Immunization Patients Under 20 months Aged Out No longer eligible based on patient's age to complete this topic Varicella Vaccines Aged Out No longer eligible based on patient's age to complete this topic Procedures Procedure Name Priority Date/Time Associated Diagnosis Comments HC SPIROMETRY BRONCHODILATION RESPONSIVENESS PRE/POST BRONCHODILATOR ADMINISTRATION Routine 04/30/2024 2:58 PM EST Asthma COMPREHENSIVE METABOLIC PANEL Routine 04/24/2024 2:54 PM EST Primary hypertension Mild intermittent asthma without complication THYROID STIMULATING HORMONE WITH REFLEX TO FREE T4 AND FREE T3 Routine 04/24/2024 2:54 PM EST Multiple thyroid nodules LIPID PANEL Routine 11/26/2023 SCREENING MAMMOGRAPHY BI 2-VIEW BREAST INC CAD Routine 08/08/2023 3:58 PM EDT Encounter for screening mammogram for malignant neoplasm of breast DEPRESSION SCREENING Routine 03/13/2023 HM HPV Routine 03/06/2023 HM HEPATITIS C SCREENING Routine 02/17/2019 HM HIV SCREENING Routine 02/17/2019 HM COLONOSCOPY Routine 12/03/2017 from Last 3 Months or Most Recently Relevant to Health Maintenance Results * Pulmonary function testing: Carbon Monoxide Diffusing Capacity, Nitrogen Wash Out, Spirometry with Bronchodilator (04/30/2024 2:58 PM EST) Narrative Caitlin Hernandez MD - 05/01/2024 3:44 PM EST DATE [...] on this PFT ??Caitlin Hernandez MD ?? us Kemar Mario MD PFT ORDERABLES Final Result * Thyroid stimulating hormone with reflex to free t4 and free t3 (04/24/2024 2:54 PM EST) TSH 1.92 0.40 - 4.00 mcIU/mL LAB CHEMISTRY METHOD 04/24/2024 6:37 PM EST [facility] Blood Venous blood specimen / Unknown Venipuncture / Unknown 04/24/2024 2:54 PM EST 04/24/2024 2:54 PM EST us Senia LUJAN LAB BLOOD ORDERABLES Final Resul t [facility] [address] [place] [address], * Comprehensive metabolic panel (04/24/2024 2:54 PM EST) Sodium 141 133 - 145 mmol/L LAB CHEMISTRY METHOD 04/24/2024 6:31 PM EST [facility] Potassium 4.4 3.5 - 5.5 mmol/L LAB CHEMISTRY METHOD 04/24/2024 6:31 PM [facility] Chloride 108 96 - 110 mmol/L LAB CHEMISTRY METHOD 04/24/2024 6:31 PM [facility] CO2 27 21 - 32 mmol/L LAB CHEMISTRY METHOD 04/24/2024 6:31 PM [facility] Anion Gap 6 3 - 11 LAB CHEMISTRY METHOD 04/24/2024 6:31 PM [facility] Glucose 88 70 - 100 mg/dL LAB CHEMISTRY METHOD 04/24/2024 6:31 PM [facility] BUN 14 5 - 25 mg/dL LAB CHEMISTRY METHOD 04/24/2024 6:31 PM [facility] Creatinine 0.59 0.50 - 1.10 mg/dL LAB CHEMISTRY METHOD 04/24/2024 6:31 PM [facility] eGFR 102 >=60 mL/min/1. 73m2 LAB CHEMISTRY METHOD 04/24/2024 6:31 PM [facility] Comment:Calculation based on the??Chronic Kidney Disease Epidemiology Collaboration (CKD-EPI) equation refit??without adjustment for race. BUN/Creatinine Ratio 23.7 LAB CHEMISTRY METHOD 04/24/2024 6:31 PM [facility] Calcium 9.8 8.5 - 10.5 mg/dL LAB CHEMISTRY METHOD 04/24/2024 6:31 PM [facility] AST (SGOT) 16 10 - 42 unit/L LAB CHEMISTRY METHOD 04/24/2024 6:31 PM [facility] ALT (SGPT) 25 10 - 60 unit/L LAB CHEMISTRY METHOD 04/24/2024 6:31 PM [facility] Alkaline Phosphatase 96 42 - 121 unit/L LAB CHEMISTRY METHOD 04/24/2024 6:31 PM [facility] Total Protein 7.6 6.0 - 8.0 g/dL LAB CHEMISTRY METHOD 04/24/2024 6:31 PM [facility] Albumin 3.9 3.2 - 5.0 g/dL LAB CHEMISTRY METHOD 04/24/2024 6:31 PM [facility] Total Bilirubin 0.9 0.0 - 1.4 mg/dL LAB CHEMISTRY METHOD 04/24/2024 6:31 PM [facility] Blood Venous blood specimen / Unknown Venipuncture / Unknown 04/24/2024 2:54 PM EST 04/24/2024 2:54 PM EST Socorro Gale MD LAB BLOOD ORDERABL ES Final Result [facility] [address] [place] [address], * (ABNORMAL) Lipid panel (11/26/2023) LDL/HDL Ratio 4 0 - 4 Triglycerides 102 0 - 150 mg/dL Cholesterol 170 0 - 200 mg/dL HDL 40 >=40 mg/dL LDL Cholesterol 110(A) 0 - 100 mg/dL Blood Venous blood specimen / Unknown us Historical Provider LAB BLOOD ORDERABLES Jaz l Result * SCREENING MAMMOGRAPHY BI 2-VIEW BREAST INC CAD (08/08/2023 3:58 PM EDT) Anatomical Region Laterality Modality Radiographic My ging 07/26/2022 2:57 PM EDT Narrative 08/09/2023 10:29 AM EDT This is a summary report. The complete report is available in the patient's medical record. If you cannot access the medical record, please contact the sending organization for a detailed fax or copy. Full field digital screening tomosynthesis mammography, reviewed with CAD and compared to previous mammograms dating back to 06/18/2014 with most recent of 07/22/2022. The breasts are composed of fatty and fibroglandular tissue. ??No suspicious mass, architectural distortion or suspicious calcifications are identified. IMPRESSION: : No mammographic evidence of malignancy. BIRADS 1-Negative; N. 5 year breast cancer risk assessment 0.8 % Lifetime breast cancer risk assessment 3.9 % Breast cancer risk category Low (<15%) Procedure Note Pao Wells MD - 12/19/2023 This is a summary report. The complete report is available in thepatient's medical record. If you cannot access the medical record, pleasecontact the sending organization for a detailed fax or copy. Full field digital screening tomosynthesis mammography, reviewed with CADand compared to previous mammograms dating back to 06/18/2014 with mostrecent of 07/22/2022. The breasts are composed of fatty and fibroglandulartissue. No suspicious mass, architectural distortion or suspiciouscalcifications are identified. IMPRESSION: : No mammographic evidence of malignancy. BIRADS 1-Negative; N. 5 year breast cancer risk assessment 0.8 % Lifetime breast cancer risk assessment 3.9 % Breast cancer risk category Low (<15%) Result [facility] Socorro Gale MD IMG XR PROCEDURES Final Result * Depression Screening (03/13/2023) Pathologist [facility] Depression Screening Abstracted Result [facility] Provider HEALTH MAINTENANCE Final Result * Cervical Cancer Screening: HPV (03/06/2023) [facility] Cervical Cancer Screening: HPV Abnormal, Abstracted Result [facility] Provider HEALTH MAINTENANCE Final Result * HIV Screening (02/17/2019) [facility] HIV Screening Abstarcted us Historical Provider HEALTH MAINTENANCE Final Result * Hepatitis C Screening (02/17/2019) Hepatitis C Screening Abstracted Historical Provider HEALTH MAINTENANCE Final Result * Colonoscopy (12/03/2017) Colonoscopy No Interpretation , Abstracted Anatomical Region Laterality Modality Other Historical Provider HEALTH MAINTENANCE Final Result from Last 3 Months or Most Recently Relevant to Health Maintenance Insurance [facility] Care Teams Optical Glass Sawyer Relationship Specialty Start Date End Date Socorro Gale MD [address] [place] [id number] PCP - General Internal Medicine 10/03/21
== END ==
LOC: HO.SL 13:42
PROVIDERS: PCP Internal Medicine; Visit Provider Psychiatry & Neurology Neurology
DX: R06.83 Snoring (principal); G47.10 Hypersomnia, unspecified
CPT/HCPCS: 95806

== ENCOUNTER → 2024-05-07 14:08 | Outpatient (BNV) | payer OTHER, SELFPAY | PROVIDERS: PCP Internal Medicine; Visit Provider Psychiatry & Neurology Neurology | DX: G47.33 Obstructive sleep apnea (adult) (pediatric) (principal) | CPT/HCPCS: 95806 ==

== ENCOUNTER 2024-06-19 14:05 | Outpatient (AMB) | payer OTHER, SELFPAY ==
[2024-06-19 14:12] VITALS: BP 130/82; PULSE 76; O2SAT 97; BMI 42.7
--- NOTE | 2024-06-19 14:12 | MHC.OFFVIS ---
Vital Signs 06/19/24 14:12 Height 5 ft 4 in Weight 249 lb BMI 42.7 BP 130/82 Blood Pressure Location Lt brachial Position Sitting Pulse 76 Pulse Source Pulse Oximeter Pulse Oximetry (%) 97 Oxygen Delivery Method Room Air Intake Visit Reasons: 3 mnts Intake Note: Patient presents 6 month follow up for neuropathy. labs done on 03/20/24, EMG done on 05/07/24. Lead Warehouse Associate Required: Yes Lead Warehouse Associate Services: Lead Warehouse Associate Present Lead Warehouse Associate Name: Tara [email or web address] Information Interpreted: non-clinical & clinical Allergies No Known Allergies Allergy (Verified 06/19/24 14:16) HPI Comments Details: 63y/o female comes for follow up of numbness and tingling in bilateral lower extremities and hands. HST 05/27/2024 AHI was 8 and oxygen kvng to 85% she will start her on CPAP therapy. She has been taking Gabapentin 600mg qhs which helps with her sleep difficulties along with bilateral UE and LE neuropathy. She reports some cognitive issues today with short term memory and word finding challenges. She has a diagnosis of mild sleep apnea abut not on treatment, as she plans on trying various different masks, the nasal canula did not work for her. She denies REM behavior disorder, parasomnias or night tremors. She has axonal neuropathy, and continues to have balance and gait issues. Arthritis bilaterally in knees, her L>R entire leg feels warm, bilaterally the plantar surface of her feet get very hot and uncomfortable with burning pain. She also c/o shooting pain down the back of her legs, sciatica. Denies urinary incontinence, Her BMI is elevated 42.7 and TSH is low 0.29, she has nodules and is being followed with her PCP. Her mood is depressed, she talks to her therapist Meg Pryor, 1x week, she takes Buproprion, Venlafaxine and this usually helps her. We discussed the importance of using her CPAP, and it's implications on her health, mood, and cognition. [facility] Medical History Hypersomnia Snoring Gait disorder Neuropathy Numbness and tingling in both hands Numbness and tingling of both legs Depression Hx of migraines Asthma Anxiety Obesity Herpes zoster Vitamin D deficiency Obstructive sleep apnea hypopnea, severe Hyperlipidemia Multiple thyroid nodules Surgical History Hx of cholecystectomy H/O lithotripsy H/O unilateral oophorectomy H/O tubal ligation Social History Household Members: Family Housing: House Alcohol intake: never Patient Tobacco Use Status: Former Tobacco user Physical Exam Vital Signs: Last Vital Signs Pulse 76 06/19/24 14:12 BP 130/82 06/19/24 14:12 Pulse Ox 97 06/19/24 14:12 Oxygen Delivery Method Room Air 06/19/24 14:12 BMI result Body Mass Index 42.7 Const General: cooperative, comfortable and no acute distress Nutritional Appearance: obese morbidly obese Orientation/consciousness: patient oriented x3 Eyes Pupils: Equal, round and reactive pupils present Neuro Other: Mild decreased PP and light touch in distal LE General: patient oriented x3, gait normal, tone normal, moves all extremities and no focal motor deficits Cranial nerves: Yes Facial sensation intact/muscles of mastication intact, Yes Equal, round and reactive pupils present, Yes Bilaterally intact EOM present, Yes Nystagmus not present, Yes Normal facial strength present, Yes Midline tongue present and Yes Symmetric palate elevation present Cognition (Neuro): normal cognition Gait exam (Neuro): Antalgic gait present Motor exam (neuro): 5/5 motor strength present throughout Deep tendon reflexes (DTR's): Right triceps reflex intensity grade: 1+, Left triceps reflex intensity grade: 1+, Rt Biceps (C5, C6): 1+, Left biceps reflex intensity grade: 1+, Right brachioradialis reflex intensity grade: 0, Left brachioradialis reflex intensity grade: 0 and Right patellar reflex intensity grade: 0 Results Reviewed Results Reviewed: July 2023, IMPRESSION: 1. This is an abnormal study. 2. 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 3. There is no electrodiagnostic evidence for median neuropathy, ulnar neuropathy, brachial plexopathy, cervical radiculopathy, peroneal neuropathy, tibial neuropathy, lumbosacral plexopathy, or lumbar radiculopathy. Assessment & Plan Assessment & Plan (1) Neuropathy: Code(s): G62.9 - Polyneuropathy, unspecified Category: Medical (2) Numbness and tingling of both legs: Code(s): R20.0 - Anesthesia of skin; R20.2 - Paresthesia of skin Category: Medical (3) Numbness and tingling in both hands: Code(s): R20.0 - Anesthesia of skin; R20.2 - Paresthesia of skin Category: Medical (4) Gait disorder: Code(s): R26.9 - Unspecified abnormalities of gait and mobility Category: Medical (5) Snoring: Code(s): R06.83 - Snoring Category: Medical (6) Hypersomnia: Code(s): G47.10 - Hypersomnia, unspecified Category: Medical (7) Obstructive sleep apnea hypopnea, severe: Code(s): G47.33 - Obstructive sleep apnea (adult) (pediatric) Category: Medical (8) RLS (restless legs syndrome): Code(s): G25.81 - Restless legs syndrome Category: Medical Plan HST 05/27/2024 mild sleep apnea, discussed with patient the importance of CPAP use and its implications on memory, mood, neuropathy. Labs are normal, however the TSH is low 0.29, and will f/u with PCP for Thyroid nodules. Will check ferritin today. Neuropathy axonal bilateral with RLS: continue Gabapentin 600mg PO at bedtime. Reviewed EMG 07/2023 with her once again re: Axonal / peripheral neuropathy, patient education. Magnilife cream topically and Magnesium 400mg PO daily at bedtime. B6 for nerves 200mg PO at bedtime daily. PT for gait and balance training with [facility] F/u in 3 months for compliance. Orders: Orders PT Evaluation and Treatment 06/19/24 G62.9 - Polyneuropathy, unspecified, R26.9 - Unspecified abnormalities of gait and mobility Medications: New magnesium oxide take one tablet daily by mouth at bedtime, may hold for lose stools. 400 mg PO DAILY 90 days 90 tabs 3RF sleep disturbances MDD 400mg G47.33 - Obstructive sleep apnea (adult) (pediatric), R20.0 - Anesthesia of skin, R20.2 - Paresthesia of skin pyridoxine (vitamin B6) ER take one tablet daily at bedtime. 200 mg PO DAILY 90 tabs 3RF RLS MDD 200mgPO G25.81 - Restless legs syndrome, G62.9 - Polyneuropathy, unspecified, R20.0 - Anesthesia of skin, R20.2 - Paresthesia of skin Changed From cyanocobalamin (vitamin B-12) 1,000 mcg PO DAILY R20.0 - Anesthesia of skin, R20.2 - Paresthesia of skin To cyanocobalamin (vitamin B-12) take once capsule daily at bedtime. 1,000 mcg PO DAILY 90 days 90 caps 0RF axonal neuropathy MDD 1000mcg R20.0 - Anesthesia of skin, R20.2 - Paresthesia of skin Patient Instructions: Sleep Hygiene provided: set a scheduled bedtime and wake time to help regulate the circadian rhythm and balance the release of pituitary hormones. Sleep in a dark room, temperatures below 68 degrees, and no devices n bed. Limit caffeinated products 6 hours prior to bed, and limit fluids 2-4 hours prior to bed. Gentle night yoga, diffusing essential oils, and playing soft music can be relaxing. RLS:Continue Gabapentin 600mg at bedtime, you may use Nervine or Rest less leg cream. Magniife also for RLS. magnesium 400mg B6 200mg po daily for numbness and tingling of legs and hands bilaterally axonal/ peripheral neuropathy - may also use magnilife or nervine topically apply to both extremities along with heavy weighted blankets. Coding Level of Care Code Est Pt Level 4 (11268) Diagnoses Neuropathy G62.9 Numbness and tingling of both legs R20.0; R20.2 Numbness and tingling in both hands R20.0; R20.2 Gait disorder R26.9 Snoring R06.83 Hypersomnia G47.10 Obstructive sleep apnea hypopnea, severe G47.33 RLS (restless legs syndrome) G25.81
--- OUTSIDE RECORDS SUMMARY | 2024-06-19 17:09 | XMS_ITS | Clinical Summary ---
Author Organization [facility] Address [address] [place] [address] Phone Care Team Providers Care Thread Weaver Name Role Phone Socorro Alexandra MD Primary [...] Colorectal Cancer Screening: Sigmoidoscopy 2010 Pneumococcal Vaccine: 50+ Years (2 of 2 - PCV) 03/24/2015 03/24/2014 Influenza Vaccine (Season Ended) 2024 03/01/2023, 03/01/2023, 03/30/2022, Additional history exists Pneumococcal Vaccine: Peds (0 to 5 Years) and At-Risk Patients (6 to 49 Years) Discontinued 03/24/2014 Hepatitis B Vaccine Aged Out 07/17/2016, 7 No longer eligible based on patient's age to complete this topic Insurance Medicaid Medicaid Care Teams Thread Weaver Relationship Specialty Start Date End Date Socorro Alexandra MD PCP - General 03/21/23
--- OUTSIDE RECORDS SUMMARY | 2024-06-19 17:10 | XMS_ITS | Clinical Summary ---
Author Organization [facility] Address [address] [place] [address] Phone Care Team Providers Care Traffic Enumerator Name Role Phone Socorro Gale MD Primary Care Prov ider Allergies Active Allergy Reactions Criticality Noted Date Comments Avocado Itching Medium 11/18/2020 Fish Derived 11/16/2021 Fish Allergy Nitrofurantoin Macrocrystal 02/14/2019 Widespread rash [place] Anaphylaxis High 09/10/2012 [place] (Prunus Persica) Anaphylaxis High 09/10/2012 Peanut Itching 09/10/2012 Peanut Oil Anaphylaxis,Itching High 09/10/2012 Medications lisinopriL (PRINIVIL,ZESTR IL) 2.5 mg tablet TAKE 1 TABLET BY MOUTH EVERY DAY 90 tablet 1 4 Active EPINEPHrine (EPIPEN) 0.3 mg/0.3 mL injection Inject 0.3 mL (0.3 mg total) into the thigh if needed for anaphylaxis. Call 911 after use. 2 each 1 4 01/10/20 25 Active albuterol 2.5 mg /3 mL (0.083 %) nebulizer solution INHALE 1 VIAL BY NEBULIZATION EVERY 4 HOURS NEEDED FOR WHEEZING, SHORTNESS OF BREATH OR COUGH. 2 Active albuterol HFA (PROAIR HFA ; PROVENTIL HFA ; VENTOLIN HFA) 90 mcg/actuation inhaler Inhale 2 Puffs into the lungs every 6 hours as needed for Cough, Wheezing or Shortness of Breath for up to 30 days. 3 Active aluminum-magnes ium hydroxide-simet hicone (MAALOX) 200-200-20 mg/5 mL suspension Take 15 mL by mouth 4 times daily as needed (heartburn). 4 Active docusate sodium (COLACE) 100 mg capsule Take 1 Capsule by mouth 2 times daily. 4 Active fluticasone HFA (Flovent HFA) 220 mcg/actuation inhaler TAKE 1 PUFF BY MOUTH TWICE A DAY 3 Active fluticasone-ricky meterol (ADVAIR DISKUS) 250-50 mcg/dose diskus inhaler Inhale 1 Puff into the lungs 2 times daily for 90 days. 3 Active gabapentin (NEURONTIN) 300 mg capsule TAKE 1 TO 2 CAPSULES BY MOUTH EVERY DAY AT BEDTIME Active ketotifen fumarate (ZADITOR) 0.035 % ophthalmic solution INSTILL 1 DROP INTO BOTH EYES TWICE A DAY 3 Active melatonin 5 mg tablet at bedtime 4 Active pantoprazole (PROTONIX) 40 mg EC tablet TAKE 1 TABLET BY MOUTH EVERY DAY 4 Active phenyleph-min oil-petrolatum (Preparation H) 0.25-14-74.9 % ointment Place 1 Dose rectally 2 times daily as needed (rectal discomfort, hemorrhoids). 4 Active traZODone (DESYREL) 100 mg tablet TAKE 2 TABLET BY MOUTH AT BEDTIME NEEDED FOR INSOMNIA. MAY REPEAT UP TO ONCE PER NIGHT 4 Active Vitamin D3 50 mcg (2,000 unit) tablet TAKE 1 TABLET BY MOUTH EVERY DAY 90 tablet 1 5 Active cyanocobalamin (VITAMIN B-12) 1,000 mcg tablet TAKE 1 TABLET BY MOUTH EVERY DAY 90 tablet 1 5 Active DULoxetine (CYMBALTA) [address] capsule Take 1 capsule (20 mg total) by mouth 1 (one) time each day. Do not crush or chew. 90 each 3 5 03/26/19 26 Active cetirizine (ZyrTEC) 10 mg tablet Take 1 tablet (10 mg total) by mouth 1 (one) time each day. 90 tablet 1 5 Active fluconazole (DIFLUCAN) 150 mg tablet Take one tablet today and if no improvement in 3 days, then take the second tablet 2 tablet 5 Active gabapentin (NEURONTIN) 600 mg tablet Take 1 tablet (600 mg total) by mouth. at bedtime 5 Active ammonium lactate (AmLactin) 12 % lotion Apply topically if needed for dry skin. 400 g 2 5 05/28/19 26 Active Active Problems Problem Noted Date Diagnosed Date Uses Par[place]ayan as primary spoken language 05/09/19 25 Insomnia 05/05/2024 Class 3 severe obesity due t o excess calories with serious comorbidity and body mass index (BMI) of 40.0 to 44.9 in adult 03/26/2024 Assessment & Plan (04/14/2024 3:20 PM EST): Assessment & Plan (03/26/2024 3:10 PM EST): BMI is 42.2 Following with bariatric team. Pending approval from the insurance for Huup[place]. Primary hypertension 03/26/2024 Assessment & Plan (03/26/2024 3:10 PM EST): Blood pressure is well-controlled on lisinopril 2.5 mg. Recommended to follow a low-salt diet and exercise regularly. Orders: Ambulatory referral to Podiatry; Future Comprehensive metabolic panel; Future Lipid panel with reflex to direct LDL; Future Depression 01/21/2024 Overview (01/21/2024): F/u [facility] Gastritis 01/21/2024 Neuropathy 12/05/2023 RLS (restless legs syndrome) 12/05/2023 Nuclear sclerosis of both eyes 05/30/2023 Dilation of renal deepti 04/15/2023 Cervical high risk HPV (human papillomavirus) te st positive 03/14/2023 Overview (05/08/2024): 2014 PAP neg cytology, neg HPV 03/2023 PAP neg cytology, + HPV ( neg 16, 18, 45) Plan per asccp RECOMMENDATION 1-year follow-up?? RISK 5 year risk of CIN3+ is 2.25% 05/08/2024 PAP Palpitations 11/16/2021 Assessment & Plan (04/14/2024 3:20 [...] surgery. MONO on CPAP 08/24/2017 Overview (01/21/2024): [facility] Home Sleep Apnea Test: Date 10/15/2020; Wt [...] sleep. 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 Overview (01/21/2024): EGD ([facility]) - no dysplasia Encounters Date Type Department Care Team Description 05/27/2024 1:45 PM EDT Consult Orthopedic Surgery [address] [phone] Rome Cannon DPEligio Bilateral foot pain (Primary Dx); Lumbosacral radiculopathy; Metatarsalgia of right foot; Xerosis cutis 05/08/2024 2:30 PM EST Office Visit Obstetrics & Gynecology [address] [phone] Daisy Bacon CNM Encounter for well woman exam with routine gynecological exam (Primary Dx); Cervical high risk HPV (human papillomavirus) test positive; Screening breast examination; Screening for malignant neoplasm of cervix; Acute vaginitis; Vaginal odor; Uses [place]ayan as primary spoken language 04/30/2024 1:55 PM EST - 04/30/2024 11:59 PM EST Hospital Encounter [facility] [address] [place] [phone] Asthma Discharge Disposition: Home or Self Care 04/24/2024 2:00 PM EST Office Visit [address] [phone] Senia Looney PA Multiple thyroid nodules (Primary Dx) 04/14/2024 2:30 PM EST Office Visit [facility] [address] [facility] [address] [place] [phone] Hector Alexander MD Mild intermittent asthma without complication (Primary Dx); Mixed hyperlipidemia; MONO on CPAP; Palpitations; Positive cardiac stress test; Class 3 severe obesity due to excess calories with serious comorbidity and body mass index (BMI) of 40.0 to 44.9 in adult (CMS/HCC V24, CMS/HCC V28); Exertional dyspnea; Secondary hypertension; Hyperlipidemia, unspecified hyperlipidemia type; Obesity, unspecified class, unspecified obesity type, unspecified whether serious comorbidity present 04/08/2024 1:15 PM EST Office Visit Bariatric Surgery [facility] [address] [phone] Srinath Acharya MD Class 3 severe obesity due to excess calories with body mass index (BMI) of 40.0 to 44.9 in adult, unspecified whether serious comorbidity present (CMS/HCC V24, CMS/HCC V28) (Primary Dx) 04/03/2024 Telephone Bariatric Surgery [facility] [address] [phone] Srinath Acharya MD Med Refill (Zepbound) 03/26/2024 1:15 PM EST Office Visit Adult Medicine [address] [phone] Socorro Gale MD Primary hypertension (Primary Dx); Mild intermittent asthma without complication; Mixed hyperlipidemia; Chronic pain of both feet; Class 3 severe obesity due to excess calories with serious comorbidity and body mass index (BMI) of 40.0 to 44.9 in adult ([facility] V24, [facility] V28); Screening for depression from Last 3 Months Immunizations Name Administration Dates Next Due Hepatitis B (Dsszpvp-Q-Ghujc , Recombivax HB-Adult) 19yo and older 07/17/2016,06/14/2016 [...] Date Site/Laterality Comments OTHER SURGICAL HISTORY PROCEDURE: [place] ECTOPIC W/O SALPING&/OOPHORECTOMY KIDNEY STONE SURGERY PROCEDURE: [place] NEPHROLITHOTOMY REMOVAL CALCULUS ESOPHAGOGASTRODUODENOSCOPY 07/07/2004 PROCEDURE: [place] EGD TRANSORAL BIOPSY SINGLE/MULTIPLE; COMMENT: Dr Roth - hiatal hernia; bx reveals Barretts Esophagus w/o dysplasia ESOPHAGOGASTRODUODENOSCOPY 11/21/2006 PROCEDURE: [place] EGD TRANSORAL BIOPSY SINGLE/MULTIPLE; COMMENT: Dr Roth - hiatal hernia, antral gastritis; bx negative for Barretts Esophagus, positive for H. pylori. ESOPHAGOGASTRODUODENOSCOPY 05/04/2012 PROCEDURE: [place] ESOPHAGOGASTRODUODENOSCOPY TRANSORAL DIAGNOSTIC; COMMENT: hiatal hernia; no Lopez's COLONOSCOPY 05/22/2012 PROCEDURE: HISTORICAL COLONOSCOPY; COMMENT: adenoma and tics; repeat in 5 yrs SALPINGOOPHORECTOMY Bilateral PROCEDURE: [place] LAPAROSCOPY W/RMVL ADNEXAL STRUCTURES; COMMENT: unilateral CHOLECYSTECTOMY PROCEDURE: [place] LAPAROSCOPY SURG CHOLECYSTECTOMY TUBAL LIGATION PROCEDURE: HISTORICAL TUBAL LIGATION Medical History Medical History Date Comments Asthma DX:Asthma Depression DX:Depression Gastritis DX:Gastritis Seasonal allergies DX:Seasonal a llergies H. pylori infection 10/18/2010 DX:H. 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; COMMENT: EGD ([facility] [place] [place]) - no dysplasia Anxiety state DX:Anxiety state [...] F Vag-S pont None Livin g Delivery Location:[place] 981 Term 38w 0d 3175 g (112 oz) M Vag-S pont None Livin g Delivery Location:[place] 982 32w 0d 907 g (32 oz) F Vag-S pont None Y Decea sed Delivery Location:[place] Comments: at 2 1 days 985 Term 38w 0d 2722 g (96 oz) F Vag-S pont None Livin g Delivery Location:[place] 986 Term 38w 0d 3175 g (112 oz) M Vag-S pont Epidur al Livin g Delivery Location:[facility] Filed Vital Signs Vital Sign Reading Time Taken Comments Blood Pressure 112/66 05/08/2024 2:29 PM EST Pulse 60 05/08/2024 2:29 PM EST Temperature 35.8 ??C (96.4 ??F) 04/24/2024 1:58 PM ES T Respiratory Rate 16 03/26/2024 1:22 PM EST Oxygen Saturation 98% 04/24/2024 1:58 PM EST Inhaled Oxygen Concentration - - Weight 111 kg (244 lb) 05/27/2024 2:00 PM EDT Height 154.9 cm (5' 1 ) 05/27/2024 2:00 PM EDT Body Mass Index 46.1 05/27/2024 2:00 PM EDT Plan of Treatment Upcoming Encounters Date Type Department Care Team (Late st Contact Info) Description 08/14/2024 2:50 PM EDT Appointment Radiology Department [address] [phone] 11/20/2024 3:00 PM EDT Office Visit Adult Medicine [address] [phone] Socorro Gale MD [address] [place] [phone] Health Maintenance Due Date Last Done Comments Zoster Vaccines (1 of 2) 10/26/2011 Pneumococcal Vaccine: 50+ Years (2 of 2 - PCV) 03/24/2015 03/24/2014 Pneumococcal Vaccine: Pediatrics (0 to 5 Years) and At-Risk Patients (6 to 64 Years) (2 of 2 - PCV) 03/24/2015 03/24/2014 Hepatitis B Vaccines (3 of 3 - 19+ 3-dose series) 12/14/2016 07/17/2016, 06/14/2016 RSV Immunization Adult Patients (1 - Risk 60-74 years 1-dose series) 2021 Social Influencers of Health Screening 02/11/2022 COVID-19 Vaccine ( - 2023- season) 2023 Depression Screening 03/26/2025 03/26/2024, 03/13/19 Hypertension/CHF/CAD Annual BMP Blood Test 04/24/2025 04/24/2024, 11/26/2023, 11/26/2023, Additional history exists Breast Cancer Screening 08/07/2025 08/08/19 24, 08/08/2023, 07/26/2022, Additional history exists Cholesterol Screening (Lipid Panel) 11/25/2028 11/26/2023, 11/26/2023 Cervical Cancer Screening: HPV 05/08/2029 05/08/2024, 03/06/2023 DTaP,Tdap,and Td Vaccines (3 - Td or Tdap) 09/19/2032 09/19/2022, 01/17/2012 Colorectal Cancer Screening: Colonoscopy 06/06/2034 06/06/2024, 12/03/2017 HIV Screening Completed 02/17/2019 Hepatitis C Screening [...] age to complete this topic Meningococcal B Vaccine Aged Out No l onger eligible based on patient's age to complete this topic RSV Immunization Patients Under 20 months Aged Out No longer eligible based on patient's age to complete this topic Varicella Vaccines Aged Out No longer eligible based on patient's age to complete this topic Procedures Procedure Name Priority Date/Time Associated Diagnosis Comments EXTERNAL COLONOSCOPY REPORT Routine 06/06/2024 1:57 PM EDT XR LUMBAR SPINE 4+ VIEWS Routine 05/27/2024 2:29 PM EDT Bilateral foot pain TRICHOMONAS VAGINALIS ANTIGEN Routine 05/08/2024 3:01 PM EST Encounter for well woman exam with routine gynecological exam Vaginal odor WET PREP, GENITAL Routine 05/08/2024 3:0 1 PM EST Encounter for well woman exam with routine gynecological exam Vaginal odor PAP SMEAR Routine 05/08/2024 2:48 PM EST Encounter for well woman exam with routine gynecological exam Cervical high risk HPV (human papillomavirus) test positive Screening for malignant neoplasm of cervix HPV WITH REFLEX GENOTYPE Routine 05/08/2024 2:48 PM EST Encounter for well woman exam with routine gynecological exam Cervical high risk HPV (human papillomavirus) test positive Screening for malignant neoplasm of cervix HC SPIROMETRY BRONCHODILATION RESPONSIVENESS PRE/POST BRONCHODILATOR ADMINISTRATION [...] neoplasm of breast DEPRESSION SCREENING Routine 03/13/2023 HEPATITIS C SCREENING Routine 02/17/2019 HIV SCREENING Routine 02/17/2019 from Last 3 Months or Most Recently Relevant to Health Maintenance Results * External Colonoscopy Report (06/06/2024 1:57 PM EDT) Anatomical Region Laterality Modality Endoscopy us Historical Provider GI~PROCEDURE ORDERABLES F inal Result * XR Lumbar Spine 4+ Views (05/27/2024 2:29 PM EDT) Anatomical Region Laterality Modality Spine, L-spine Computed Radiogr aphy 05/27/2024 3:18 PM EDT Impressions 05/27/2024 4:12 PM EDT Minor discogenic degenerative disease. Facet hypertrophy. -------- FINAL REPORT -------- Dictated By: Pao Wells Dictated Date: 05/27/2024 15:18 ET Assigned Physician: Pao Wells Reviewed and Electronically Signed By: Pao Wells Signed Date: 05/27/2024 16:12 ET Workstation ID: [id number] Transcribed By: Self Edit Transcribed Date: 05/27/2024 15:53 ET Narrative 05/27/2024 4:12 PM EDT LUMBOSACRAL SPINE, ??4 VIEWS INCLUDING OBLIQUES HISTORY: ??Bilateral foot pain. Prior: Lumbar spine 12/05/2023. FINDINGS: There is normal alignment of the lumbosacral spine. ??No fractures are seen. There is minor endplate spurring at several levels. There is mild facet hypertrophy of the lower lumbar spine. There are surgical clips in the right upper quadrant. Procedure Note Pao Wells MD - 05/27/2024 LUMBOSACRAL SPINE, 4 VIEWS INCLUDING OBLIQUES HISTORY: Bilateral foot pain. Prior: Lumbar spine 12/05/2023. FINDINGS: There is normal alignment of the lumbosacral spine. No fractures areseen. There is minor endplate spurring at several levels. There is mild facet hypertrophy of the lower lumbar spine. There are surgical clips in the right upper quadrant. IMPRESSION: Minor discogenic degenerative disease. Facet hypertrophy. -------- FINAL REPORT -------- Dictated By: Pao Wells Dictated Date: 05/27/2024 15:18 ET Assigned Physician: Pao Wells Reviewed and Electronically Signed By: Pao Wells Signed Date: 05/27/2024 16:12 ET Workstation ID: [id number] Transcribed By: Self Edit Transcribed Date: 05/27/2024 15:53 ET Rome Cannon DPM IMG XR PROCEDURES Final Res ult * Trichomonas vaginalis antigen (05/08/2024 3:01 PM EST) Trichomonas vaginalis Negative Negative 05/08/2024 5:39 PM EST [facility] Swab Vaginal structure / Unknown Non-blood Collection / Unknown 05/08/2024 3:01 PM EST 05/08/2024 4:05 PM EST Daisy Bacon CNM LAB MICROBIOLOGY - GENERAL OR DERABLES Final Result [facility] [address] [place] [address], * (ABNORMAL) Wet prep, genital (05/08/2024 3:01 PM EST) Clue Cells, Wet Prep Negative Negative 05/08/2024 5:39 PM EST [facility] Yeast, Wet Prep Positive(A) Negative 05/08/2024 5:39 PM EST [facility] Trichomonas, Wet Prep Indeterminate Negative 05/08/2024 5:39 PM EST [facility] Comment:Refer to Trichomonas antigen. Swab Vaginal structure / Unknown Non-blood Collection / Unknown 05/08/2024 3:01 PM EST 05/08/2024 4:05 PM EST [facility] MICROBIOLOGY - GENERAL OR DERABLES Final Result Performing Organization Address [facility]/ZIP Co de Phone Number [facility] [address] [place] [address], [place] [phone] * HPV with reflex genotype (05/08/2024 2:48 PM EST) HPV Negative Negative LAB MICROBIOLOGY METHOD 05/09/2024 3:02 PM EST [facility] Brushing/Spatula Cervix uteri structure / Unknown 05/08/2024 2:48 PM EST 05/09/2024 7:52 AM EST Daisy Bacon [facility] MOLECULAR DIAGNOSTICS ORD ERABLES Final Result Performing Organization Address [facility]/ZIP Co de Phone Number [facility] [address] [place] [address], [place] [phone] * Pap smear (05/08/2024 2:48 PM EST) Interpretation Negative for intraepithelial lesion or malignancy 05/13/2024 11:32 AM EDT [facility] Clinical Information Last PAP 03/2023 Neg cytology, + HPV 05/13/2024 11:32 AM EDT [facility] General Categorization Negative 05/13/2024 11:32 AM EDT [facility] Specimen Adequacy Satisfactory for evaluation, endocervical/miranda sformation zone component absent 05/13/2024 11:32 AM EDT [facility] Pap Methodology Liquid Based Pap Test 05/13/2024 11:32 AM EDT [facility] Disclaimer The Pap test is a screening test which carries an inherent false negative rate. These test results should be correlated with the patient's clinical findings and history. This Pap test was processed using an automated screening system. Technical cytopathology services provided by [facility], at [address] [place] [address] (CLIA # [id number]/Art Morales MD, Us Administrative Law Judge.) 05/13/2024 11:32 AM EDT [facility] Console Pap Interpretation Reported 05/13/2024 11:32 AM [facility] Brushing/Spatula Cervix uteri structure / Unknown 05/08/2024 2:48 PM EST 05/09/2024 7:52 AM EST Comment:Last PAP 03/2023 Neg cytology, + HPV Daisy Bacon [facility] CYTOLOGY ORDERABLES Final Result [facility] [address] [place] [address], [place] [phone] * Pulmonary function testing: Carbon Monoxide Diffusing [...] mcIU/mL LAB CHEMISTRY METHOD 04/24/2024 6:37 PM [facility] Blood Venous blood specimen / Unknown Venipuncture / Unknown 04/24/2024 2:54 PM EST 04/24/2024 2:54 PM EST us Senia LUJAN LAB BLOOD ORDERABLES Final Resul t [facility] [address] [place] [address], [place] [phone] * Comprehensive metabolic panel (04/24/2024 2:54 PM EST) Sodium 141 133 - 145 mmol/L LAB CHEMISTRY METHOD 04/24/2024 6:31 PM [facility] Potassium 4.4 3.5 - 5.5 mmol/L LAB CHEMISTRY METHOD 04/24/2024 6:31 PM [facility] Chloride 108 96 - 110 mmol/L LAB CHEMISTRY METHOD 04/24/2024 6:31 PM [facility] CO2 27 21 - 32 mmol/L LAB CHEMISTRY METHOD 04/24/2024 6:31 PM [facility] Anion Gap 6 3 - 11 LAB CHEMISTRY METHOD 04/24/2024 6:31 PM [facility] Glucose 88 70 - 100 mg/dL LAB CHEMISTRY METHOD 04/24/2024 6:31 PM [facility] BUN 14 5 - 25 mg/dL LAB CHEMISTRY METHOD 04/24/2024 6:31 PM [facility] Creatinine 0.59 0.50 - 1.10 mg/dL LAB CHEMISTRY METHOD 04/24/2024 6:31 PM [facility] eGFR 102 >=60 mL/min/1. 73m2 LAB CHEMISTRY METHOD 04/24/2024 6:31 PM [facility] Comment:Calculation based on the??Chronic Kidney Disease Epidemiology Collaboration (CKD-EPI) equation refit??without adjustment for race. BUN/Creatinine Ratio 23.7 LAB CHEMISTRY METHOD 04/24/2024 6:31 PM [facility] Calcium 9.8 8.5 - 10.5 mg/dL LAB CHEMISTRY METHOD 04/24/2024 6:31 PM [facility] AST (SGOT) 16 10 - 42 unit/L LAB CHEMISTRY METHOD 04/24/2024 6:31 PM [facility] ALT (SGPT) 25 10 - 60 unit/L LAB CHEMISTRY METHOD 04/24/2024 6:31 PM [facility] Alkaline Phosphatase 96 42 - 121 unit/L LAB CHEMISTRY METHOD 04/24/2024 6:31 PM [facility] Total Protein 7.6 6.0 - 8.0 g/dL LAB CHEMISTRY METHOD 04/24/2024 6:31 PM [facility] Albumin 3.9 3.2 - 5.0 g/dL LAB CHEMISTRY METHOD 04/24/2024 6:31 PM [facility] Total Bilirubin 0.9 0.0 - 1.4 mg/dL LAB CHEMISTRY METHOD 04/24/2024 6:31 PM [facility] Blood Venous blood specimen / Unknown Venipuncture / Unknown 04/24/2024 2:54 PM EST 04/24/2024 2:54 PM EST us Socorro Gale MD LAB BLOOD ORDERABL ES Final Result [facility] [address] [place] [address], * (ABNORMAL) Lipid panel (11/26/2023) LDL/HDL Ratio [...] % Breast cancer risk category Low (<15%) Socorro Gale MD IMG XR PROCEDURES Final Result * Depression Screening (03/13/2023) Depression Screening Abstracted Result [facility] Historical Provider HEALTH MAINTENANCE Final Result * HIV Screening (02/17/2019) Pathologist [facility] HIV Screening Abstarcted [facility] Provider HEALTH MAINTENANCE Final Result * Hepatitis C Screening (02/17/2019) Pathologist [facility] Hepatitis C Screening Abstracted [facility] Provider HEALTH MAINTENANCE Final Result from Last 3 Months or Most Recently Relevant to Health Maintenance Insurance [facility] PL[facility] Care Teams Traffic Enumerator Relationship Specialty Start Date End Date Socorro Gale MD [address] [place] [phone] PCP - General Internal Medicine 10/03/21
== END 2024-06-19 15:13 | disposition home or self-care (01) ==
LOC: HO.HSMS 14:06
PROVIDERS: PCP Internal Medicine; Visit Provider Physician Assistant Medical
DX: G62.9 Polyneuropathy, unspecified (principal); R20.0 Anesthesia of skin; R20.2 Paresthesia of skin; R26.9 Unspecified abnormalities of gait and mobility; R06.83 Snoring; G47.10 Hypersomnia, unspecified; G47.33 Obstructive sleep apnea (adult) (pediatric); G25.81 Restless legs syndrome
CPT/HCPCS: 99214

== ENCOUNTER → 2024-06-19 14:05 | Outpatient (BNVA) | payer OTHER, SELFPAY | PROVIDERS: PCP Internal Medicine; Visit Provider Physician Assistant Medical | DX: G47.33 Obstructive sleep apnea (adult) (pediatric) (principal); G47.10 Hypersomnia, unspecified; G25.81 Restless legs syndrome; G62.9 Polyneuropathy, unspecified; R20.0 Anesthesia of skin; R20.2 Paresthesia of skin; R26.9 Unspecified abnormalities of gait and mobility; R06.83 Snoring; Z99.89 Dependence on other enabling machines and devices | CPT/HCPCS: 99212 ==

== ENCOUNTER 2024-09-18 13:51 | Outpatient (AMB) | payer OTHER, SELFPAY ==
[2024-09-18 14:01] VITALS: BP 130/80; PULSE 88; O2SAT 97; BMI 42.7
--- NOTE | 2024-09-18 14:01 | MHC.OFFVIS ---
Vital Signs 09/18/24 14:01 Height 5 ft 4 in Weight 248 lb 8 oz BMI 42.7 BP 130/80 Blood Pressure Location Lt brachial Position Sitting Pulse 88 Pulse Source Pulse Oximeter Pulse Oximetry (%) 97 Oxygen Delivery Method Room Air Intake Visit Reasons: 3 mnts f/u Intake Note: Patient presents follow up numbness/MONO medication. Patient states numbness in both feet(toes)and bottom of feet. 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 HST 05/27/2024 AHI was 8 and oxygen kvng to 85% she will start her on CPAP therapy. MONO Compliance report 06/2024 to 09/2024 She goes to bed at 11pm and wakes up at 8am. She has been taking Gabapentin 600mg qhs which helps with her sleep difficulties along with bilateral UE and LE neuropathy. She has axonal neuropathy, and continues to have balance and gait issues. She has a diagnosis of mild sleep apnea, and significant patient education provided re: sleep apnea today. She will try various masks, as the nasal canula did not work for her. She denies REM behavior disorder, parasomnias or night tremors. She has arthritis bilaterally in knees, her L>R entire leg feels warm, bilaterally the plantar surface worse neuropathy of her feet. They feel very hot and uncomfortable with burning pain. She also c/o shooting pain down the back of her legs, sciatica. She can not feel her toes anymore, and they are blue, her ESR is elevated and has a Rheumatology consult pending. Her memory is poor, she relies on her daughter to remember, she forgets where she placed articles, difficulty with word finding, Denies urinary incontinence. Her BMI is elevated 42.7 and TSH is low 0.29, she has nodules and is being followed with her PCP. Her mood is depressed, she talks to her therapist Meg Pryor, 1x week, she takes Buproprion, Venlafaxine and this usually helps. We discussed the importance of using her CPAP, and implications of mono on her health, heart, mood, and cognition. CPAP- Mask fitting Rheumatology-, Referral? start 75mg po daily of lyrica - stop gabapentin PFSH Medical History Hypersomnia Snoring Gait disorder Neuropathy Numbness and tingling in both hands Numbness and tingling of both legs Depression Hx of migraines Asthma Anxiety Obesity Herpes zoster Vitamin D deficiency Obstructive sleep apnea hypopnea, severe Hyperlipidemia Multiple thyroid nodules Surgical History Hx of cholecystectomy H/O lithotripsy H/O unilateral oophorectomy H/O tubal ligation Social History Household Members: Family Housing: House Alcohol intake: never Patient Tobacco Use Status: Former Tobacco user Physical Exam Vital Signs: Last Vital Signs Pulse 88 09/18/24 14:01 BP 130/80 09/18/24 14:01 Pulse Ox 97 09/18/24 14:01 Oxygen Delivery Method Room Air 09/18/24 14:01 BMI result Body Mass Index 42.7 Const General: cooperative, comfortable and no acute distress Nutritional Appearance: obese morbidly obese Orientation/consciousness: patient oriented x3 Eyes Pupils: Equal, round and reactive pupils present Neuro Other: Mild decreased PP and light touch in distal LE General: patient oriented x3, gait normal, tone normal, moves all extremities and no focal motor deficits Cranial nerves: Yes Facial sensation intact/muscles of mastication intact, Yes Equal, round and reactive pupils present, Yes Bilaterally intact EOM present, Yes Nystagmus not present, Yes Normal facial strength present, Yes Midline tongue present and Yes Symmetric palate elevation present Cognition (Neuro): normal cognition Gait exam (Neuro): Antalgic gait present Motor exam (neuro): 5/5 motor strength present throughout Assessment & Plan Assessment & Plan (1) Obstructive sleep apnea hypopnea, severe: Code(s): G47.33 - Obstructive sleep apnea (adult) (pediatric) Category: Medical (2) Neuropathy: Code(s): G62.9 - Polyneuropathy, unspecified Category: Medical (3) Numbness and tingling of both legs: Comment: RLS will start her on lyrica and stop gabapentin Code(s): R20.0 - Anesthesia of skin; R20.2 - Paresthesia of skin Category: Medical (4) Numbness and tingling in both hands: Code(s): R20.0 - Anesthesia of skin; R20.2 - Paresthesia of skin Category: Medical (5) Gait disorder: Comment: PT declined today Code(s): R26.9 - Unspecified abnormalities of gait and mobility Category: Medical (6) Snoring: Comment: will start using her cpap Code(s): R06.83 - Snoring Category: Medical (7) Hypersomnia: Code(s): G47.10 - Hypersomnia, unspecified Category: Medical (8) RLS (restless legs syndrome): Code(s): G25.81 - Restless legs syndrome Category: Medical Plan: hold gabapentin will trial her on lyrica 25mg po at bedtime. (9) Depression: Code(s): F32.A - Depression, unspecified Category: Medical Qualifiers: Depression Type: unspecified Qualified Code(s): F32.A - Depression, unspecified (10) Chronic fatigue: Comment: check ferritin Code(s): R53.82 - Chronic fatigue, unspecified Category: Medical Plan MONO HST 05/27/2024 mild sleep apnea, discussed with patient the importance of CPAP use and its implications on CV health, memory, mood, and neuropathy. Labs are normal, however the TSH is low 0.29, and will f/u with PCP for Thyroid nodules. RLS : Will check ferritin today and B6 today. Neuropathy axonal bilateral with RLS: discontinue Gabapentin 600mg PO at bedtime, will start her on Lyrica 25mg po daily at bedtime. Reviewed EMG 07/2023 with her once again re: Axonal / peripheral neuropathy, patient education. Magnilife cream topically and Magnesium 400mg PO daily at bedtime. continue B12 at bedtime and will start her on B6 for nerves 200mg PO at bedtime daily, once this lab is resulted. PT for gait and balance training with [facility] continue F/u in 3 months for compliance. Orders: Orders Vitamin B6 Today F32.A - Depression, unspecified, R20.0 - Anesthesia of skin, R20.2 - Paresthesia of skin Ferritin Today R53.82 - Chronic fatigue, unspecified Medications: New pregabalin (Lyrica) Take one capsule daily at bedtime for restless leg symptoms of neuropathy. hold gabapentin. 25 mg PO BEDTIME 90 caps 0RF neuropathy 3 months MDD 25mg po G25.81 - Restless legs syndrome, G62.9 - Polyneuropathy, unspecified On Hold gabapentin Hold Comment: Doctor's Order 600 mg PO BEDTIME 30 tabs 6RF Patient Instructions: Sleep Hygiene provided: set a scheduled bedtime and wake time to help regulate the circadian rhythm and balance the release of pituitary hormones. Sleep in a dark room, temperatures below 68 degrees, and no devices n bed. Limit caffeinated products 6 hours prior to bed, and limit fluids 2-4 hours prior to bed. Gentle night yoga, diffusing essential oils, and playing soft music can be relaxing. Coding Level of Care Code Est Pt Level 4 (71458) Diagnoses Obstructive sleep apnea hypopnea, severe G47.33 Neuropathy G62.9 Numbness and tingling of both legs R20.0; R20.2 Numbness and tingling in both hands R20.0; R20.2 Gait disorder R26.9 Snoring R06.83 Hypersomnia G47.10 RLS (restless legs syndrome) G25.81 Depression, unspecified depression type F32.A Depression Type: unspecified Chronic fatigue R53.82 Time Spent (min) 30 Comment sleep apnea re: education
--- OUTSIDE RECORDS SUMMARY | 2024-09-18 14:34 | XMS_ITS | Clinical Summary ---
Author Organization 175 [facility] Address [address] [place] [address] Phone Care Team Providers Care Joint Creaser Name Role Phone Socorro Gale MD Primary Care Prov ider Allergies Active Allergy Reactions Criticality Noted Date Comments Avocado Itching Medium 11/18/2020 Fish Derived 11/16/2021 Fish Allergy Nitrofurantoin Macrocrystal 02/14/2019 Widespread rash Mcdowell Anaphylaxis High 09/10/2012 Mcdowell (Prunus Persica) Anaphylaxis High 09/10/2012 Peanut Itching 09/10/2012 Peanut Oil Anaphylaxis,Itching High 09/10/2012 Medications EPINEPHrine (EPIPEN) 0.3 mg/0.3 mL injection Inject [...] up to 30 days. 11/30/19 23 Active aluminum-magne sium hydroxide-nickie thicone (MAALOX) 200-200-20 mg/5 mL suspension Take 15 mL by mouth 4 times daily as needed (heartburn). 07/09/19 24 Active docusate sodium (COLACE) 100 mg capsule Take 1 Capsule by mouth 2 times daily. 07/09/19 24 Active fluticasone HFA (Flovent HFA) 220 mcg/actuation inhaler TAKE 1 PUFF BY MOUTH TWICE A DAY 05/18/19 23 Active fluticasone-sa lmeterol (ADVAIR DISKUS) 250-50 mcg/dose diskus inhaler Inhale 1 Puff into the lungs 2 times daily for 90 days. 11/30/19 23 Active gabapentin (NEURONTIN) 300 mg capsule Activ e ketotifen fumarate (ZADITOR) 0.035 % ophthalmic solution INSTILL 1 DROP INTO BOTH EYES TWICE A DAY 06/21/19 23 Active melatonin 5 mg tablet at bedtime 12/06/19 24 Active phenyleph-min oil-petrolatum (Preparation H) 0.25-14-74.9 [...] day. 90 tablet 1 04/01/19 25 Active fluconazole (DIFLUCAN) 150 mg tablet Take one tablet today and if no improvement in 3 days, then take the second tablet 2 tablet 05/11/19 25 Active gabapentin (NEURONTIN) 600 mg tablet Take 1 tablet (600 mg total) by mouth. at bedtime 05/02/19 25 Active ammonium lactate (AmLactin) 12 % lotion Apply topically if needed for dry skin. 400 g 2 05/28/19 25 026 Active pantoprazole (PROTONIX) 40 mg EC tablet TAKE 1 TABLET BY MOUTH EVERY DAY 90 tablet 1 06/26/19 25 Active famotidine (PEPCID) 20 mg tablet TAKE 1 TABLET BY MOUTH 2 TIMES DAILY NEEDED FOR HEARTBURN. 180 tablet 3 07/05/19 25 Active lisinopriL (PRINIVIL,ZEST RIL) 2.5 mg tablet TAKE 1 TABLET BY MOUTH EVERY DAY 90 tablet 1 07/05/19 25 Active phentermine 15 mg capsuleIndicat ions:Class 3 severe obesity due to excess calories with body mass index (BMI) of 40.0 to 44.9 in adult, unspecified whether serious comorbidity present (CMS/[facility] V24, CMS/[facility] V28) TAKE 1 CAPSULE (15 MG TOTAL) BY MOUTH ONCE DAILY BEFORE BREAKFAST MAX DAILY AMOUNT: 15 MG 30 capsule 09/11/19 25 Active phentermine 15 mg capsuleIndicat ions:Class 3 severe obesity due to excess calories with body mass index (BMI) of 40.0 to 44.9 in adult, unspecified whether serious comorbidity present (CMS/HCC V24, CMS/[facility] V28) Take 1 capsule (15 mg total) by mouth 1 (one) time each day before breakfast. Max Daily Amount: 15 mg 30 each 08/05/19 25 025 Discontinued Active Problems Problem Noted Date Diagnosed Date Uses Beninese as primary spoken language 05/09/19 25 Insomnia 05/05/2024 Class 3 severe obesity due t o excess calories with serious comorbidity and body mass index (BMI) of 40.0 to 44.9 in adult (CMS/HCC V24, CMS/[facility] V28) 03/26/2024 Assessment & Plan (04/14/2024 3:20 PM [...] LDL; Future Depression 01/21/2024 Overview (01/21/2024): F/u [facility] Gastritis 01/21/2024 Neuropathy 12/05/2023 RLS (restless legs syndrome) 12/05/2023 Nuclear sclerosis of both eyes 05/30/2023 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 MONO on CPAP 08/24/2017 Overview (01/21/2024): [facility] Home Sleep Apnea Test: Date 10/15/2020; Wt [...] sleep. 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 Overview (01/21/2024): [place] - no dysplasia Encounters Date Type Department Care Team Description 08/25/2024 2:09 PM EDT - 08/25/2024 11:59 PM EDT Hospital Encounter Radiology Department - [address] [phone] Multiple thyroid nodules; Lymphadenopathy of left cervical region Discharge Disposition: Home or Self Care 08/14/2024 2:27 PM EDT - 08/14/2024 11:59 PM EDT Hospital Encounter Radiology Department - [address] [phone] Encounter for screening mammogram for breast cancer Discharge Disposition: Home or Self Care 08/04/2024 9:45 AM EDT Office Visit Bariatric Surgery [address] [place] [phone] Srinath Acharya MD Class 3 severe obesity due to excess calories with body mass index (BMI) of 40.0 to 44.9 in adult, unspecified whether serious comorbidity present (CMS/HCC V24, CMS/HCC V28) (Primary Dx) 07/24/2024 1:00 PM EDT Office Visit Adult Medicine [address] [phone] Nova Godinez PA Multiple thyroid nodules (Primary Dx); Class 3 severe obesity due to excess calories with serious comorbidity and body mass index (BMI) of 40.0 to 44.9 in adult (CMS/HCC V24, CMS/HCC V28); Encounter for screening involving social determinants of health (SDoH); Need for vaccination against Streptococcus pneumoniae 07/14/2024 Telephone Adult Medicine [address] [phone] Socorro Gale MD 07/24 Appointment 07/02/2024 1:53 PM EDT - 07/02/2024 11:59 PM EDT Hospital Encounter Radiology Department - [address] [phone] Multiple thyroid nodules; Sore throat Discharge Disposition: Home or Self Care 07/02/2024 Telephone Bariatric Surgery - [place] [address] [place] [address] Srinath Acharya MD appeal (denial) 06/25/2024 Telephone Adult Medicine East - [address] [phone] Socorro Gale MD New Med Request; Appointment 06/24/2024 8:20 AM EDT Office Visit Endocrinology - [address] [phone] Senia Looney PA Multiple thyroid nodules (Primary Dx); Sore throat from Last 3 Months Immunizations Name Administration Dates Next Due Hepatitis B (Qjbqnxi-F-Sypag , Recombivax HB-Adult) 19yo and older 07/17/2016,06/14/2016 [...] older 11/19/2023,01/21/2016,03/24/2014,01/21,04/01/2012 PPD Test 01/05/2017, 3,02/15/2010,02/10 Pneumococcal conjugate 20 va lent (Prevnar 20, PCV 20) 2mo and older 07/24/2024 Pneumococcal polysaccharide 23 valent (Pneumovax 23) 2yo and older 03/24/2014 Tdap Tetanus diptheria acell ular pertussis (Boostrix; Adacel) 7yo and older 09/19/2022,01/17/2012 Surgical History Surgery Date Site/Laterality Comments OTHER SURGICAL HISTORY PROCEDURE: [place] TX ECTOPIC W/O SALPING&/OOPHORECTOMY KIDNEY STONE SURGERY PROCEDURE: [place] NEPHROLITHOTOMY REMOVAL CALCULUS ESOPHAGOGASTRODUODENOSCOPY 07/07/2004 PROCEDURE: [place] EGD TRANSORAL BIOPSY SINGLE/MULTIPLE; COMMENT: Dr Roth - hiatal hernia; bx reveals Barretts Esophagus w/o dysplasia ESOPHAGOGASTRODUODENOSCOPY 11/21/2006 PROCEDURE: [place] EGD TRANSORAL BIOPSY SINGLE/MULTIPLE; COMMENT: Dr Ira viverosatal hernia, antral gastritis; bx negative for Barretts Esophagus, positive for H. pylori. ESOPHAGOGASTRODUODENOSCOPY 05/04/2012 PROCEDURE: SC ESOPHAGOGASTRODUODENOSCOPY TRANSORAL DIAGNOSTIC; COMMENT: hiatal hernia; no Lopez's COLONOSCOPY 05/22/2012 PROCEDURE: HISTORICAL COLONOSCOPY; COMMENT: adenoma and tics; repeat in 5 yrs SALPINGOOPHORECTOMY Bilateral PROCEDURE: SC LAPAROSCOPY W/RMVL ADNEXAL STRUCTURES; COMMENT: unilateral CHOLECYSTECTOMY PROCEDURE: SC LAPAROSCOPY SURG CHOLECYSTECTOMY TUBAL LIGATION PROCEDURE: HISTORICAL TUBAL LIGATION Medical History Medical History Date Comments Asthma DX:Asthma Depression DX:Depression Gastritis DX:Gastritis Seasonal allergies DX:Seasonal a llergies H. pylori infection 10/18/2010 DX:H. 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 Yes 07/24/2024 Health Literacy Answer Date Recorded How often do you need to hav e someone help you when you read instructions, pamphlets, or other written material from your doctor or pharmacy? Never 07/24/2024 Caregiver: How often do you need to have someone help you when you read instructions, pamphlets, or other written material from your doctor or pharmacy? Not on file 07/24/2024 Financial Risk Answer Date Recorded How hard is it for you to pa y for the very basics like food, housing, medical care, and air conditioning / heating? Not very hard 07/24/2024 Transportation Answer Date Recorded Has the lack of transportati on kept you from meetings, work, or from getting things needed for daily living? No Has the lack of transportati on kept you from medical appointments or from getting medications? No 07/24/2024 Social Isolation Answer Date Recorded How often do you feel lonely or isolated from th ose around you? Never 07/24/2024 Food Risk Answer Date Recorded Within the past 12 months we worried whether our food would run out before we got money to buy more. Never true 07/24/2024 Within the past 12 months th e food we bought just didn't last and we didn't have money to get more. Never true 07/24/2024 Dependent Care Answer Date Recorded Do you need help finding or paying for care for your loved ones. For example, teacher early childhood development or elderly care for an older adult? No 07/24/2024 Education Answer Date Recorded Do you think completing more education or training, like finishing a GED, going to college, or learning a trade, would be helpful for you? N/A 07/24/2024 Employment and Income Answer Date Recor ded During the last four weeks, have you been actively looking for work? No 07/24/2024 Living Situation Answer Date Recorded What is your living situation? 0 07/24/2024 Comments No Sex and Gender Information Value Date Recorded Sex Assigned at Not on file Legal Sex Female 3:30 AM EST Gender Identity Not on file Sexual Orientation Not on file Obstetrics History Para Term AB IAB SAB Ectopic Multiple Livin g Live Births 6 6 5 1 4 5 Date Outcome GA Total Labor Labor//3rd Weight Sex Type Anes PTL Chrissie A1 A5 Name Clin Term 980 Term 37w 0d 2268 g (80 oz) F Vag-S pont None Livin g Delivery Location:[facility] 981 Term 38w 0d 3175 g (112 oz) M Vag-S pont None Livin g Delivery Location:[facility] 982 32w 0d 907 g (32 oz) F Vag-S pont None Y Decea sed Delivery Location:[facility] Comments: at 2 1 days 985 Term 38w 0d 2722 g (96 oz) F Vag-S pont None Livin g Delivery Location:[facility] 986 Term 38w 0d 3175 g (112 oz) M Vag-S pont Epidur al Livin g Delivery Location:[facility] Last Filed Vital Signs Vital Sign Reading Time Taken Comments Blood Pressure 142/83 08/04/2024 9:32 AM EDT Pulse 76 08/04/2024 9:32 AM EDT Temperature 36.6 C (97.8 F) 08/04/2024 9:32 AM EDT Respiratory Rate 13 07/24/2024 1:16 PM EDT Oxygen Saturation 96% 07/24/2024 1:16 PM EDT Inhaled Oxygen Concentration - - Weight 116 kg (256 lb) 08/04/2024 9:32 AM EDT Height 162.6 cm (5' 4 ) 08/04/2024 9:32 AM EDT Body Mass Index 43.94 08/04/2024 9:32 AM EDT Plan of Treatment Upcoming Encounters Date Type Department Care Team (Late st Contact Info) Description 10/02/2024 1:30 PM EDT Consult Endocrinology [address] [phone] Rosaline Shahid MD [address] [place] [address] 11/20/2024 3:00 PM EDT Office Visit Adult Medicine [facility] - [address] [phone] Socorro Gale MD [address] [place] [phone] 11/27/2024 2:00 PM EDT Office Visit Bariatric Surgery - [place] [address] [phone] Srinath Acharya MD [address] [address] Health Maintenance Due Date Last Done Comments Zoster Vaccines (1 of 2) 10/26/2011 Hepatitis B Vaccines (3 of 3 - 19+ 3-dose series) 12/14/2016 07/17/2016, 06/14/2016 RSV Immunization Adult Patients (1 - Risk 60-74 years 1-dose series) 2021 Influenza Vaccine (#1) 2024 , 11/19/2023, 03/01/2023, Additional history exists Hypertension/CHF/CAD Annual BMP Blood Test 04/24/2025 04/24/2024, 11/26/2023, 11/26/2023, Additional history exists Social Influencers of Health Screening 07/24/2025 07/24/2024 Breast Cancer Screening 08/14/2026 08/15/19, 08/08/2023, 08/08/2023, Additional history exists Colorectal Cancer Screening: Colonoscopy 12/04/2027 06/06/2024, 12/03/2017 Cholesterol Screening (Lipid Panel) 11/25/2028 11/26/2023, 11/26/2023 Cervical Cancer Screening: HPV 05/08/2029 05/08/2024, 03/06/2023 DTaP,Tdap,and Td Vaccines (3 - Td or Tdap) 09/19/2032 09/19/2022, 01/17/2012 HIV Screening Completed 02/17/2019 Hepatitis C Screening Completed 02/17/2019 Depression Screening Completed 03/26/2024 Pneumococcal Vaccine: 50+ Years Completed 07/24/2024, 03/24/2014 COVID-19 Vaccine Discontinued HIB Vaccines Aged Out No longer eligi [...] Procedure Name Priority Date/Time Associated Diagnosis Comments US HEAD NECK SOFT TISSUE Routine 08/25/2024 2:28 PM EDT Multiple thyroid nodules Lymphadenopathy of left cervical region MG MAMMO DIGITAL SCREENING W DARIEL BILAT Routine 08/14/2024 2:57 PM EDT Encounter for screening mammogram for breast cancer THYROID STIMULATING HORMONE WITH REFLEX TO FREE T4 AND FREE T3 Routine 07/24/2024 2:42 PM EDT Multiple thyroid nodules US HEAD NECK SOFT TISSUE Routine 07/02/2024 2:29 PM EDT Multiple thyroid nodules Sore throat EXTERNAL COLONOSCOPY REPORT Routine 06/06/2024 1:57 PM EDT HPV WITH REFLEX GENOTYPE Routine 05/08/2024 2:48 PM EST Encounter for well woman exam with routine gynecological exam Cervical high risk HPV (human papillomavirus) test positive Screening for malignant neoplasm of cervix COMPREHENSIVE METABOLIC PANEL Routine 04/24/2024 2:54 PM EST Primary hypertension Mild intermittent asthma without complication LIPID PANEL Routine 11/26/2023 HEPATITIS C SCREENING Routine 02/17/2019 HIV SCREENING Routine 02/17/2019 from Last 3 Months or Most Recently Relevant to Health Maintenance Results * US Head Neck Soft Tissue (08/25/2024 2:28 PM EDT) Only the most recent of2 resultswithin the time period is included. Anatomical Region Laterality Modality Head and Neck Ultrasound 08/25/2024 3:02 PM EDT Impressions 08/25/2024 3:06 PM EDT Stable bilateral submandibular lymph nodes -------- FINAL REPORT -------- Dictated By: Sabina Mcbride Dictated Date: 08/25/2024 15:02 ET Assigned Physician: Sabina Mcbride Reviewed and Electronically Signed By: Sabina Mcbride Signed Date: 08/25/2024 15:06 ET Workstation ID: [id number] Transcribed By: Self Edit Transcribed Date: 08/25/2024 15:02 ET Narrative 08/25/2024 3:06 PM EDT US HEAD NECK SOFT TISSUE COMPARISON: Thyroid ultrasound on July 02, 2024 HISTORY: Thyroid nodule follow up abnormal US FINDINGS: Study obtained for follow-up bilateral submandibular lymph nodes. Today's survey show: -Right submandibular lymph nodes measuring 1.1 x 0.6 x 0.9 cm and 0.6 x 0.4 x 0.4 cm. -Left submandibular lymph nodes measuring 1.2 x 0.7 x 1.0 cm and 1.5 x 0.6 x 1.0 cm. Overall sonographic appearance is unchanged from prior study. Procedure Note Sabina Mcbride MD - 08/25/2024 US HEAD NECK SOFT TISSUE COMPARISON: Thyroid ultrasound on July 02, 2024 HISTORY: Thyroid nodule follow up abnormal US FINDINGS: Study obtained for follow-up bilateral submandibular lymph nodes. Today's survey show: -Right submandibular lymph nodes measuring 1.1 x 0.6 x 0.9 cm and 0.6 x0.4 x 0.4 cm. -Left submandibular lymph nodes measuring 1.2 x 0.7 x 1.0 cm and 1.5 x 0.6x 1.0 cm. Overall sonographic appearance is unchanged from prior study. IMPRESSION: Stable bilateral submandibular lymph nodes -------- FINAL REPORT -------- Dictated By: Sabina Mcbride Dictated Date: 08/25/2024 15:02 ET Assigned Physician: Sabina Mcbride Reviewed and Electronically Signed By: Sabina Mcbride Signed Date: 08/25/2024 15:06 ET Workstation ID: [id number] Transcribed By: Self Edit Transcribed Date: 08/25/2024 15:02 ET us Nova LUJAN IMG US PROCEDURES Final Result * MG Mammo Digital Screening w Dariel bilat (08/14/2024 2:57 PM EDT) Anatomical Region Laterality Modality Breast Bilateral Mammography 08/15/2024 9:19 AM EDT Impressions 08/15/2024 9:23 AM EDT BILATERAL BREASTS: Negative, no evidence of malignancy. Normal interval follow- up is recommended in 12 months. BREAST DENSITY: B - There are scattered areas of fibroglandular density. BI-RADS CATEGORY: 1 - NEGATIVE RECOMMENDATION: Screening bilateral mammogram is recommended in 1 year. Mammo Location: [facility], [address] [place] [address], [id number], . -------- FINAL REPORT -------- Dictated By: Sabina Mcbride Dictated Date: 08/15/2024 09:19 ET Assigned Physician: Sabina Mcbride Reviewed and Electronically Signed By: Sabina Mcbride Signed Date: 08/15/2024 09:23 ET Workstation ID: [id number] Transcribed By: Self Edit Transcribed Date: 08/15/2024 09:20 ET Narrative 08/15/2024 9:23 AM EDT STUDY: Bilateral screening mammography with tomosynthesis and CAD TECHNIQUE: Bilateral full-field digital screening mammography is obtained and read in conjunction with computer-aided detection. Tomosynthesis as well as 2-D C view imaging were obtained. COMPARISON: Comparison made to multiple prior, most recent August 08, 2023, and most remote June 18, 2014. BILATERAL BREASTS: No significant masses, suspicious calcifications or other abnormalities are seen in either breast. Procedure Note Sabina Mcbride MD - 08/15/2024 STUDY: Bilateral screening mammography with tomosynthesis and CAD TECHNIQUE: Bilateral full-field digital screening mammography is obtainedand read in conjunction with computer-aided detection. Tomosynthesis aswell as 2-D C view imaging were obtained. COMPARISON: Comparison made to multiple prior, most recent August 08, 2023,and most remote June 18, 2014. BILATERAL BREASTS: No significant masses, suspicious calcifications orother abnormalities are seen in either breast. IMPRESSION: BILATERAL BREASTS: Negative, no evidence of malignancy. Normal intervalfollow-up is recommended in 12 months. BREAST DENSITY: B - There are scattered areas of fibroglandular density. BI-RADS CATEGORY: 1 - NEGATIVE RECOMMENDATION: Screening bilateral mammogram is recommended in 1 year. Mammo Location: [facility], [address] [place] [address], [id number], . -------- FINAL REPORT -------- Dictated By: Sabina Mcbride Dictated Date: 08/15/2024 09:19 ET Assigned Physician: Sabina Mcbride Reviewed and Electronically Signed By: Sabina Mcbride Signed Date: 08/15/2024 09:23 ET Workstation ID: [id number] Transcribed By: Self Edit Transcribed Date: 08/15/2024 09:20 ET Socorro Gale MD IMG BI PROCEDURES Final Result * Thyroid stimulating hormone with reflex to free t4 and free t3 (07/24/2024 2:42 PM EDT) TSH 2.08 0.40 - 4.00 mcIU/mL LAB CHEMISTRY METHOD 07/24/2024 5:14 PM EDT [facility] Blood Venous blood specimen / Unknown Venipuncture / Unknown 07/24/2024 2:42 PM EDT 07/24/2024 2:42 PM EDT Nova LUJAN LAB BLOOD ORDERABLES Final Resu lt [facility] [address] [place] [address], [place] [phone] * External Colonoscopy Report (06/06/2024 1:57 PM EDT) Anatomical Region Laterality Modality Endoscopy Historical Provider GI~PROCEDURE ORDERABLES F inal Result * HPV with reflex genotype (05/08/2024 2:48 PM EST) HPV Negative Negative LAB MICROBIOLOGY METHOD 05/09/2024 3:02 PM EST [facility] Brushing/Spatula Cervix uteri structure / Unknown 05/08/2024 2:48 PM EST 05/09/2024 7:52 AM EST Daisy Bacon CNM LAB MOLECULAR DIAGNOSTICS ORD ERABLES Final Result [facility] [address] [place] [address], * Comprehensive metabolic panel (04/24/2024 2:54 PM EST) Sodium 141 133 - 145 mmol/L LAB CHEMISTRY METHOD 04/24/2024 6:31 PM [facility] Potassium 4.4 3.5 - 5.5 mmol/L LAB CHEMISTRY METHOD 04/24/2024 6:31 PM [facility] Chloride 108 96 - 110 mmol/L LAB CHEMISTRY METHOD 04/24/2024 6:31 PM [facility] CO2 27 21 - 32 mmol/L LAB CHEMISTRY METHOD 04/24/2024 6:31 PM [facility] Anion Gap 6 3 - 11 LAB CHEMISTRY METHOD 04/24/2024 6:31 PM [facility] Glucose 88 70 - 100 mg/dL LAB CHEMISTRY METHOD 04/24/2024 6:31 PM [facility] BUN 14 5 - 25 mg/dL LAB CHEMISTRY METHOD 04/24/2024 6:31 PM [facility] Creatinine 0.59 0.50 - 1.10 mg/dL LAB CHEMISTRY METHOD 04/24/2024 6:31 PM [facility] eGFR 102 >=60 mL/min/1. 73m2 LAB CHEMISTRY METHOD 04/24/2024 6:31 PM [facility] Comment:Calculation based on the Chronic Kidney Disease Epidemiology Collaboration (CKD-EPI) equation refit without adjustment for race. BUN/Creatinine Ratio 23.7 LAB CHEMISTRY METHOD 04/24/2024 6:31 PM [facility] Calcium 9.8 8.5 - 10.5 mg/dL LAB CHEMISTRY METHOD 04/24/2024 6:31 PM [facility] AST (SGOT) 16 10 - 42 unit/L LAB CHEMISTRY METHOD 04/24/2024 6:31 PM [facility] ALT (SGPT) 25 10 - 60 unit/L LAB CHEMISTRY METHOD 04/24/2024 6:31 PM [facility] Alkaline Phosphatase 96 42 - 121 unit/L LAB CHEMISTRY METHOD 04/24/2024 6:31 PM [facility] Total Protein 7.6 6.0 - 8.0 g/dL LAB CHEMISTRY METHOD 04/24/2024 6:31 PM [facility] Albumin 3.9 3.2 - 5.0 g/dL LAB CHEMISTRY METHOD 04/24/2024 6:31 PM [facility] Total Bilirubin 0.9 0.0 - 1.4 mg/dL LAB CHEMISTRY METHOD 04/24/2024 6:31 PM [facility] Blood Venous blood specimen / Unknown Venipuncture / Unknown 04/24/2024 2:54 PM EST 04/24/2024 2:54 PM EST Socorro Gale MD LAB BLOOD ORDERABL ES Final Result [facility] [address] [place] [address], * (ABNORMAL) Lipid panel (11/26/2023) Pathologist [facility] LDL/HDL Ratio 4 0 - 4 Triglycerides 102 0 - 150 mg/dL Cholesterol 170 0 - 200 mg/dL HDL 40 >=40 mg/dL LDL Cholesterol 110(A) 0 - 100 mg/dL Blood Venous blood specimen / Unknown Historical Provider LAB BLOOD ORDERABLES Jaz l Result * HIV Screening (02/17/2019) Pathologist [facility] HIV Screening Abstarcted Historical Provider HEALTH MAINTENANCE Final Result * Hepatitis C Screening (02/17/2019) Hepatitis C Screening Abstracted us Historical Provider HEALTH MAINTENANCE Final Result from Last 3 Months or Most Recently Relevant to Health Maintenance Insurance [address] [address] PLAN Care Teams Joint Creaser Relationship Specialty Start Date End Date Socorro Gale MD [address] [place] [id number] PCP - General Internal Medicine 10/03/21
--- OUTSIDE RECORDS SUMMARY | 2024-09-18 14:34 | XMS_ITS | Clinical Summary ---
Author Organization [facility] Address [address] [place] [address] Phone Care Team Providers Care Spool Salvager Name Role Phone Socorro Alexandra MD Primary [...] - PCV) 03/24/2015 03/24/2014 Influenza Vaccine (#1) 2024 3, 03/01/2023, 03/30/2022, Additional history exists Pneumococcal Vaccine: Peds (0 to 5 Years) and At-Risk Patients (6 to 49 Years) Discontinued 03/24/2014 Hepatitis B Vaccine Aged Out 07/17/2016, 7 No longer eligible based on patient's age to complete this topic Insurance Medicaid Medicaid Care Teams Spool Salvager Relationship Specialty Start Date End Date Socorro Alexandra MD PCP - General 03/21/23
== END 2024-09-18 15:00 | disposition home or self-care (01) ==
LOC: HO.HSMS 13:51
PROVIDERS: PCP Internal Medicine; Visit Provider Physician Assistant Medical
DX: G47.33 Obstructive sleep apnea (adult) (pediatric) (principal); G62.9 Polyneuropathy, unspecified; R20.0 Anesthesia of skin; R20.2 Paresthesia of skin; R26.9 Unspecified abnormalities of gait and mobility; R06.83 Snoring; G47.10 Hypersomnia, unspecified; G25.81 Restless legs syndrome; F32.A Depression, unspecified; R53.82 Chronic fatigue, unspecified
CPT/HCPCS: 99214

== ENCOUNTER → 2024-09-18 13:51 | Outpatient (BNVA) | payer OTHER, SELFPAY | PROVIDERS: PCP Internal Medicine; Visit Provider Physician Assistant Medical | DX: G47.33 Obstructive sleep apnea (adult) (pediatric) (principal); G62.9 Polyneuropathy, unspecified; G25.81 Restless legs syndrome; G47.10 Hypersomnia, unspecified; R20.0 Anesthesia of skin; R20.2 Paresthesia of skin; R26.9 Unspecified abnormalities of gait and mobility; R06.83 Snoring; R53.82 Chronic fatigue, unspecified; F32.A Depression, unspecified | CPT/HCPCS: 99212 ==